=== PATIENT | female | born 1955 | race Two or more races ===

== ENCOUNTER → 2022-11-06 | Outpatient (CLI) | payer MEDICARE ==
--- NOTE | 2022-11-07 11:45 | CT ---
EXAMINATION TYPE: CT chest wo con DATE OF EXAM: 11/06/2022 COMPARISON: HISTORY: COPD. High resolution. CT DLP: 419.10 mGycm, Automated exposure control for dose reduction was used. CONTRAST: None TECHNIQUE: Axial images were obtained at 1 mm thick sections at 10 mm intervals. This will limit po rtions of the examination which may not be visualized within the [id number]. Images were obtained in the prone and supine views. FINDINGS: Portion of the thyroid visualized is normal. There is some mild emphysematous changes in the right apex and peripheral right upper lobe. Some mild peribronchial thickening appears to be present. No bronchiectasis is evident. No suspicious masses evident. There is a pleural-based density within the posterior medial right lung measuring 1.0 cm. Series 4 im age 166. This is persistent on prone and supine views. Some minimal scarring or atelectasis may be in the anterior right lung. Series 4 image 178. Small ple ural-based nodules are in the anterior right lung. Series 4 image 216. These findings are not identif ied on the prone view which may be out of the lunwa-sy-nzkz or related atelectasis. No enlarged mediastinal or hilar adenopathy is evident. The ascending aorta diameter at the level o f the main pulmonary artery is 3.6 cm. The main pulmonary artery diameter at the bifurcation is 2.4 cm. Mild coronary artery calcification is present Limited CT sections are obtained through the upper abdomen. Abdomen is essentially unremarkable. IMPRESSIONS: 1. Mild chronic appearing bronchitis. 2. Pleural-based densities. Standard CT chest may be useful for documentation and monitoring.
== END | disposition home or self-care (01) ==
LOC: RADCTMAIN 16:10
PROVIDERS: ATTEND Internal Medicine Critical Care Medicine
DX: J98.4 Other disorders of lung (principal); R06.09 Other forms of dyspnea
CPT/HCPCS: 71250

== ENCOUNTER 2023-02-15 08:56 | Emergency (ER) | payer MEDICARE ==
[2023-02-15 09:24] VITALS: TEMP 98.2
--- NOTE | 2023-02-15 10:00 | XR ---
EXAMINATION TYPE: XR chest 2V DATE OF EXAM: 02/15/2023 COMPARISON: None INDICATION: Mild short of breath, cough TECHNIQUE: Frontal and lateral views of the chest are obtained. FINDINGS: The heart size is normal. The pulmonary vasculature is normal. The lungs are clear. IMPRESSION: 1. No acute pulmonary process.
[2023-02-15 10:10] VITALS: BP 173/96
[2023-02-15 10:16] LABS: Basophils # (A) 0.1 k/uL (0-0.2); Basophils % (A) 1 %; Eosinophils # (A) 0.1 k/uL (0-0.7); Eosinophils % (A) 1 %; HCT 42.7 % (34.0-46.0); HGB 14.2 gm/dL (11.4-16.0); Lymphocytes # (A) 0.6 k/uL (1.0-4.8); Lymphocytes % (A) 7 %; MCH 30.8 pg (25.0-35.0); MCHC 33.1 g/dL (31.0-37.0); MCV 92.8 fL (80.0-100.0); Mean Platelet Volume 7.3; Monocytes # (A) 0.4 k/uL (0-1.0); Monocytes % (A) 4 %; Neutrophils # (A) 7.7 k/uL (1.3-7.7); Neutrophils % (A) 85 %; Platelet Count 223 k/uL (150-450); RDW 15.2 % (11.5-15.5); WBC 9.1 k/uL (3.8-10.6)
[2023-02-15 10:56] LABS: ALT 15 U/L (4-34); AST 25 U/L (14-36); African American GFR (CKD) >90 (>60 ml/min/1.73 sqM); Albumin 4.6 g/dL (3.5-5.0); Alkaline Phosphatase 96 U/L (38-126); Anion Gap 12 mmol/L; Blood Urea Nitrogen 9 mg/dL (7-17); Calcium 9.5 mg/dL (8.4-10.2); Carbon Dioxide 24 mmol/L (22-30); Chloride 100 mmol/L (98-107); Glucose 105 mg/dL (74-99); Non-African American GFR(CKD) >90 (>60 ml/min/1.73 sqM); Potassium 4.1 mmol/L (3.5-5.1); Sodium 136 mmol/L (137-145); Total Bilirubin 0.6 mg/dL (0.2-1.3); Total Protein 7.6 g/dL (6.3-8.2)
[2023-02-15] MEDS ORDERED: IPRATROPIUM-ALBUTEROL 3 ML NEB INHALATION STA (11:00)
--- NOTE | 2023-02-15 11:04 | ED ---
General Adult HPI - General Chief complaint: Upper Respiratory Infection Stated complaint: JUN Time Seen by Provider: 02/15/23 10:19 Source: patient, RN notes reviewed Mode of arrival: ambulatory Limitations: no limitations - History of Present Illness Initial comments: 67 year-old female past medical history significant for COPD, hypertension, rheumatoid arthritis since to the emergency department with a chief complaint of cough. Patient reports this is day 2 of a cough with accompanying symptoms of generalized body aches, congestion, headache. She denies any known recent sick contacts. She is up-to-date on vaccines. She denies chest pain, palpitations, shortness of breath, dyspnea. Patient has not been taking any xrjh-dxf-dpteuzx remedies for his symptoms - Related Data Previous Rx's Medication Instructions Recorded predniSONE 50 mg PO DAILY #5 tab 02/15/23 Allergies Allergy/AdvReac Type Severity Reaction Status Date / Time hydroxychloroquine Allergy Nausea & Verified 02/15/23 09:08 [From Plaquenil] Vomiting & Diarrhea Review of Systems ROS Statement: Those systems with pertinent positive or pertinent negative responses have been documented in the HPI. ROS Other: All systems not noted in ROS Statement are negative. Past Medical History Past Medical History: COPD, Hyperlipidemia, Hypertension, Rheumatoid Arthritis (RA), Thyroid Disorder Additional Past Medical History / Comment(s): barrets esophagus History of Any Multi-Drug Resistant Organisms: None Reported Past Surgical History: Section Past Psychological History: No Psychological Hx Reported Smoking Status: Never smoker Past Alcohol Use History: None Reported Past Drug Use History: None Reported General Exam - General Exam Comments Initial Comments: General: Alert, in no acute distress Head: atraumatic normocephalic. Eyes PERRL, EOMI intact, mucous membranes moist Respiratory: Mild expiratory wheeze. Cardiovascular: Heart rate regular rate and rhythm Abdominal: Soft without guarding or rebound Extremities: Normal inspection with full range of motion and normal capillary refill Neuroogic: alert and oriented 3, CN II-XII intact, able to ambulate with steady gait Skin: warm dry and intact with normal color Limitations: no limitations Course Vital Signs 02/15/23 02/15/23 02/15/23 09:03 09:50 10:47 Temperature 98.2 F Pulse Rate 74 Respiratory 18 18 Rate Blood Pressure 202/111 173/96 O2 Sat by Pulse 94 L Oximetry 02/15/23 02/15/2323 12:08 12:17 13:04 Temperature Pulse Rate 74 74 73 Respiratory 20 Rate Blood Pressure O2 Sat by Pulse 94 L Oximetry - Reevaluation(s) Reevaluation #1: 02/15/23 13:02 she was reevaluated. Expiratory wheeze has improved status post DuoNeb. Patient agreeable with the plan for discharge home Medical Decision Making - Medical Decision Making Was pt. sent in by a medical professional or institution (, GABBI, MARINE GEOLOGIST, urgent care, hospital, or shelter...) When possible be specific @ -[No] Did you speak to anyone other than the patient for history (EMS, parent, family, police, friend...)? What history was obtained from this source @ -[No] Did you review nursing and triage notes (agree or disagree)? Why? @ -[I reviewed and agree with nursing and triage notes] Were old charts reviewed (outside hosp., previous admission, EMS record, old EKG, old radiological studies, urgent care reports/EKG's, shelter records)? Report findings @ -[No old charts were reviewed] Differential Diagnosis (chest pain, altered mental status, abdominal pain women, abdominal pain men, vaginal bleeding, weakness, fever, dyspnea, syncope, headach e, dizziness, GI bleed, back pain, seizure, CVA, palpatations, mental health, musculoskeletal)? @ -[not applicable] EKG interpreted by me (3pts min.). @ -[As above] X-rays interpreted by me (1pt min.). @ X-ray does not reveal any cardiomegaly or focal consolidation CT interpreted by me (1pt min.). @ -[None done] U/S interpreted by me (1pt. min.). @ -[None done] What testing was considered but not performed or refused? (CT, X-rays, U/S, labs)? Why? @ -[None] What meds were considered but not given or refused? Why? @ -[None] Did you discuss the management of the patient with other professionals (professionals i.e. GABBI Moscoso, MARINE GEOLOGIST, lab, RT, psych nurse, social service technician, credit control manager, teacher, media liaison officer, welfare case worker)? Give summary @ -[No] Was smoking cessation discussed for >3mins.? @ -[No] Was critical care preformed (if so, how long)? @ -[No] Were there social determinants of health that impacted care today? How? (Homelessness, low income, unemployed, alcoholism, drug addiction, transportation, low edu. Level, literacy, decrease access to med. care, longterm, rehab)? @ -[No] Was there de-escalation of care discussed even if they declined (Discuss DNR or withdrawal of care, Hospice)? DNR status @ -[No] What co-morbidities impacted this encounter? (DM, HTN, Smoking, COPD, CAD, Cancer, CVA, ARF, Chemo, Hep., AIDS, mental health diagnosis, sleep apnea, morbid obesity)? @ -[None] Was patient admitted / discharged? Hospital course, mention meds given and route, prescriptions, significant lab abnormalities, going to OR and other pertinent info. @ -Discharged. This is 67-year-old female who presents the emergency department with cough. Patient had a history and physical exam performed. Vital signs are stable upon evaluation. Patient afebrile. There is mild exp iratory wheeze heard in the upper lung barrera. Heart rate regular rate and rhythm. Patient had viral swabs. Patient is RSV positive. Laboratory studies unremarkable. Patient was provided DuoNeb with some improvement. Chest x-ray does not reveal any focal consolidation. I discussed results in detail the patient verbalized understanding all questions were addressed. She is agreeable with the plan for discharge home. Patient provided a prescription for prednisone. Return precautions discussed at length. Case discussed with Dr. rutledge [facility] who agrees with plan of care Undiagnosed new problem with uncertain prognosis? @ -[No] Drug Therapy requiring intensive monitoring for toxicity (Heparin, Nitro, Insulin, Cardizem)? @ -[No] Were any procedures done? @ -[No] Diagnosis/symptom? @ -Cough - RSV - Hx of COPD Acute, or Chronic, or Acute on Chronic? @ -Acute Uncomplicated (without systemic symptoms) or Complicated (systemic symptoms)? @ -Uncomplicated Side effects of treatment? @ -[No] Exacerbation, Progression, or Severe Exacerbation? @ -[No] Poses a threat to life or bodily function? How? (Chest pain, [place], [place], pneumonia, PE, COPD, DKA, ARF, appy, cholecystitis, CVA, Diverticulitis, Homicidal, Suicidal, threat to staff... and all critical care pts) @ -Low likelihood - Lab Data Result diagrams: 02/15/23 09:12 02/15/23 09:12 Lab Results 02/15/23 02/15/23 02/15/23 Range/Units 09:12 09:12 09:12 WBC 9.1 (3.8-10.6) k/uL RBC 4.60 (3.80-5.40) m/uL Hgb 14.2 (11.4-16.0) gm/dL Hct 42.7 (34.0-46.0) % MCV 92.8 (80.0-100.0) fL MCH 30.8 (25.0-35.0) pg MCHC 33.1 (31.0-37.0) g/dL RDW 15.2 (11.5-15.5) % Plt Count 223 (150-450) k/uL MPV 7.3 Neutrophils % 85 % Lymphocytes % 7 % Monocytes % 4 % Eosinophils % 1 % Basophils % 1 % Neutrophils # 7.7 (1.3-7.7) k/uL Lymphocytes # 0.6 L (1.0-4.8) k/uL Monocytes # 0.4 (0-1.0) k/uL Eosinophils # 0.1 (0-0.7) k/uL Basophils # 0.1 (0-0.2) k/uL Sodium 136 L (137-145) mmol/L Potassium 4.1 (3.5-5.1) mmol/L Chloride 100 (98-107) mmol/L Carbon Dioxide 24 (22-30) mmol/L Anion Gap 12 mmol/L BUN 9 (7-17) mg/dL Creatinine 0.51 L (0.52-1.04) mg/dL Est GFR (CKD-EPI)AfAm >90 (>60 ml/min/1.73 sqM) Est GFR (CKD-EPI)NonAf >90 (>60 ml/min/1.73 sqM) Glucose 105 H (74-99) mg/dL Calcium 9.5 (8.4-10.2) mg/dL Total Bilirubin 0.6 (0.2-1.3) mg/dL AST 25 (14-36) U/L ALT 15 (4-34) U/L Alkaline Phosphatase 96 (38-126) U/L Total Protein 7.6 (6.3-8.2) g/dL Albumin 4.6 (3.5-5.0) g/dL Influenza Type A (PCR) Not Detected (Not Detectd) Influenza Type B (PCR) Not Detected (Not Detectd) RSV (PCR) Detected A (Not Detectd) SARS-CoV-2 (PCR) Not Detected (Not Detectd) Disposition Clinical Impression: Cough, RSV (acute bronchiolitis due to respiratory syncytial virus), History of COPD Disposition: HOME SELF-CARE Condition: Stable Instructions (If sedation given, give patient instructions): Respiratory Syncytial Virus (ED), Upper Respiratory Infection (ED) Additional Instructions: Dougie symptoms closely. Please take steroids as prescribed PLeasee return to the nearest emergency department if symptoms worsen or high fever, shortness of breath or cough develop Prescriptions: predniSONE 50 mg PO DAILY #5 tab Is patient prescribed a controlled substance at d/c from ED?: No Referrals: Kathy Wolf NPC [REFERRING] - 1-2 days Time of Disposition: 12:57
[2023-02-15 13:12] VITALS: PULSE 73; RESP 20
== END 2023-02-15 13:08 | disposition home or self-care (01) ==
LOC: EC 08:56
DX: J44.9 Chronic obstructive pulmonary disease, unspecified (principal); B97.4 Respiratory syncytial virus as the cause of diseases classified elsewhere; I10 Essential (primary) hypertension; Z20.822 Contact with and (suspected) exposure to COVID-19; Z88.8 Allergy status to other drugs, medicaments and biological substances
CPT/HCPCS: 36415; 71046; 80053; 85025; 87636; 94640; 99285

== ENCOUNTER → 2023-05-25 | Outpatient (CLI) | payer MEDICARE ==
--- NOTE | 2023-05-27 14:16 | MM ---
Reason for Exam: Screening (asymptomatic). Patient History: Menarche at age 11. First Full-Term at age 35. Late child-bearing (after 30). Postmenopausal. Risk Values: Lana 5 year model risk: 2.4%. NCI Lifetime model risk: 7.6%. Prior Study Comparison: No prior studies available for comparison. Tissue Density: The breasts are heterogeneously dense, which may obscure small masses. Findings: Analyzed By CAD. There is no suspicious group of microcalcifications or new suspicious mass. Benign-appearing calcifications bilaterally. Overall Assessment: Benign, BI-RAD 2 Management: Screening Mammogram of both breasts in [address] [facility] will attempt to contact patient to return for supplemental views and ultrasound if indicated. Patient should continue monthly self-breast exams. A clinical breast exam by your physician is recommended on an annual basis. This exam should not preclude additional follow-up of suspicious palpable abnormalities. Note on Lana scores and lifetime risk: 1. A Lana score greater than 3% is considered moderate risk. If this is the case, consider specialist referral to assess eligibility for a risk reducing agent. 2. If overall lifetime risk for the development of breast cancer is 20% or higher, the patient may qualify for future screening with alternating mammogram and breast MRI. Electronically signed and approved by: Chuck Bean DO
== END | disposition home or self-care (01) ==
LOC: RADMAMWWP 13:29
PROVIDERS: ATTEND Family Medicine
DX: Z12.31 Encounter for screening mammogram for malignant neoplasm of breast (principal); Z78.0 Asymptomatic menopausal state
CPT/HCPCS: 77063; 77067

== ENCOUNTER 2023-06-21 07:52 | Observation (INO) | payer MEDICARE ==
--- NOTE | 2023-06-21 08:43 | XR ---
EXAMINATION TYPE: XR chest 2V DATE OF EXAM: 06/21/2023 COMPARISON: 02/15/2023 HISTORY: Shortness of breath TECHNIQUE: Frontal and lateral views of the chest are obtained. FINDINGS: Scattered senescent parenchymal changes noted. Hyperinflation compatible with COPD. No evidence for infiltrate. No evidence for atelectasis. Heart size is stable. Mediastinal structures are stable and grossly unremarkable. No evidence for hilar prominence. Degenerative changes dorsal spine. IMPRESSION: 1. No evidence for acute pulmonary disease.
[2023-06-21] MEDS: hydrALAZINE HCL 20 MG/ML 1 ML VIAL IVP STA (08:47)
[2023-06-21] MEDS: MECLIZINE 25 MG TAB PO STA (08:48)
[2023-06-21] MEDS: SODIUM CHLORIDE 0.9% 1,000 ML IV STA (08:48)
[2023-06-21 08:49] LABS: Basophils # (A) 0.1 k/uL (0-0.2); Basophils % (A) 0 %; Eosinophils # (A) 0.2 k/uL (0-0.7); Eosinophils % (A) 2 %; HGB 13.8 gm/dL (11.4-16.0); Lymphocytes # (A) 1.2 k/uL (1.0-4.8); Lymphocytes % (A) 8 %; MCH 31.6 pg (25.0-35.0); MCHC 33.8 g/dL (31.0-37.0); MCV 93.6 fL (80.0-100.0); Mean Platelet Volume 7.6; Monocytes # (A) 0.7 k/uL (0-1.0); Monocytes % (A) 5 %; Neutrophils # (A) 12.1 k/uL (1.3-7.7); Neutrophils % (A) 84 %; Platelet Count 271 k/uL (150-450); RBC 4.37 m/uL (3.80-5.40); RDW 15.5 % (11.5-15.5); WBC 14.3 k/uL (3.8-10.6)
[2023-06-21] MEDS: METOCLOPRAMIDE 5 MG/ML 2 ML VIAL IVP STA (08:51)
[2023-06-21 08:56] LABS: INR 0.9 (<1.2); Partial Thromboplastin Time 24.8 sec (22.0-30.0); Prothrombin Time 10.5 sec (10.0-12.5)
--- NOTE | 2023-06-21 08:58 | ED ---
General Adult HPI - General Chief complaint: Chest Pain Stated complaint: dizziness/nausea Time Seen by Provider: 06/21/23 08:00 Source: patient, family, RN notes reviewed, old records reviewed Mode of arrival: ambulatory Limitations: no limitations - History of Present Illness Initial comments: This is a 67-year-old female who presents to the emergency department with a past medical history significant for high blood pressure and vertigo. Patient states about a week ago her vertigo was ongoing but over the last 2 days things got worse where it was not just quick movements if she was dizzy all the time. Patient states it was hard to walk without holding onto something and she became nauseous and states she has a 3 out of 10 headache at this time. Patient has not vomited patient denies chest pain or palpitations but she does state her chest feels tight but could be secondary to being anxious about the vertigo. Patient denies any abdominal pain. Patient denies any back pain. Patient is any dysuria hematuria urinary frequency. Patient denies any recent fever chills or cough. - Related Data Previous Rx's Medication Instructions Recorded predniSONE 50 mg PO DAILY #5 tab 02/15/23 Allergies Allergy/AdvReac Type Severity Reaction Status Date / Time hydroxychloroquine Allergy Nausea & Verified 06/21/23 07:59 [From Plaquenil] Vomiting & Diarrhea Penicillins Allergy Rash/Hives Verified 06/21/23 07:59 Review of Systems ROS Statement: Those systems with pertinent positive or pertinent negative responses have been documented in the HPI. ROS Other: All systems not noted in ROS Statement are negative. Past Medical History Past Medical History: COPD, Hyperlipidemia, Hypertension, Rheumatoid Arthritis (RA), Thyroid Disorder Additional Past Medical History / Comment(s): barrets esophagus, mctd connective tissue disorder. History of Any Multi-Drug Resistant Organisms: None Reported Past Surgical History: Section Past Psychological History: No Psychological Hx Reported Smoking Status: Never smoker Past Alcohol Use History: None Reported Past Drug Use History: None Reported General Exam - General Exam Comments Initial Comments: GENERAL: Patient is well-developed and well-nourished. Patient is nontoxic and well- hydrated and is in mild distress. ENT: Neck is soft and supple. No significant lymphadenopathy is noted. Oropharynx is clear. Moist mucous membranes. Neck has full range of motion without eliciting any pain. EYES: The sclera were anicteric and conjunctiva were pink and moist. Extraocular movements were intact and pupils were equal round and reactive to light. Eyelids were unremarkable. No nystagmus was noted however when the patient track my finger she was very dizzy PULMONARY: Unlabored respirations. Good breath sounds bilaterally. No audible rales rhonchi or wheezing was noted. CARDIOVASCULAR: There is a regular rate and rhythm without any murmurs gallops or rubs. ABDOMEN: Soft and nontender with normal bowel sounds. SKIN: Skin is clear with no lesions or rashes and otherwise unremarkable. NEUROLOGIC: Patient is alert and oriented x3. Cranial nerves II through XII are grossly intact. Motor and sensory are also intact. Normal speech, volume and content. Symmetrical smile. Finger-nose testing was normal bilaterally MUSCULOSKELETAL: Normal extremities with adequate strength and full range of motion. No lower extremity swelling or edema. No calf tenderness. LYMPHATICS: No significant lymphadenopathy is noted PSYCHIATRIC: Normal psychiatric evaluation. Limitations: no limitations Course Vital Signs 06/21/23 06/21/23 06/21/23 07:54 08:16 08:18 Temperature 98 F Pulse Rate 66 64 Pulse Rate [ 66 Mechanical Cad Drafter ] Respiratory 18 18 Rate Blood Pressure 164/102 208/99 O2 Sat by Pulse 98 95 Oximetry 06/21/23 06/21/23 08:45 09:12 Temperature Pulse Rate 64 61 Pulse Rate [ Mechanical Cad Drafter ] Respiratory 18 16 Rate Blood Pressure 193/106 174/89 O2 Sat by Pulse 97 98 Oximetry Medical Decision Making - Medical Decision Making EKG is interpreted by myself. EKG shows a sinus bradycardia 51 bpm parables 155 QRS is 81 QT interval is 421 QTc is 399. Patient's EKG shows no ST segment ovation or depression Was pt. sent in by a medical professional or institution (, PA, MEDICARE NURSE, urgent care, hospital, or halfway...) When possible be specific @ -No Did you speak to anyone other than the patient for history (EMS, parent, family, police, friend...)? What history was obtained from this source @ -No Did you review nursing and triage notes (agree or disagree)? Why? @ -I reviewed and agree with nursing and triage notes Were old charts reviewed (outside hosp., previous admission, EMS record, old EKG, old radiological studies, urgent care reports/EKG's, halfway records)? Report findings @ -I reviewed prior lab work on this patient and compared to today's lab work and saw no outstanding abnormalities. Also reviewed prior EKGs and prior radiological studies Differential Diagnosis (chest pain, altered mental status, abdominal pain women, abdominal pain men, vaginal bleeding, weakness, fever, dyspnea, syncope, headache, dizziness, GI bleed, back pain, seizure, CVA, palpatations, mental health, musculoskeletal)? @ -Differential Dizziness: Benign paroxysmal positional Vertigo, Menieres disease, otitis media, acoustic neuroma, vertebrobasilar insufficiency, cerebellar stroke, encephalitis, hy povolemic, arrhythmia, coronary artery syndrome, anemia, this is not meant to be an all-inclusive list EKG interpreted by me (3pts min.). @ -As above X-rays interpreted by me (1pt min.). @ -Chest x-ray showed no acute abnormality. CT interpreted by me (1pt min.). @ -None done U/S interpreted by me (1pt. min.). @ -None done What testing was considered but not performed or refused? (CT, X-rays, U/S, labs)? Why? @ -None What meds were considered but not given or refused? Why? @ -None Did you discuss the management of the patient with other professionals (professionals i.e. , PA, MEDICARE NURSE, lab, RT, psych nurse, social welfare administrator, guard dance hall, teacher, security police officer, case management assistant)? Give summary @ -I spoke with Dr. Dickinson he agreed to admit the patient Was smoking cessation discussed for >3mins.? @ -No Was critical care preformed (if so, how long)? @ -No Were there social determinants of health that impacted care today? How? (Homelessness, low income, unemployed, alcoholism, drug addiction, transportatio n, low edu. Level, literacy, decrease access to med. care, fdc, rehab)? @ -No Was there de-escalation of care discussed even if they declined (Discuss DNR or withdrawal of care, Hospice)? DNR status @ -No What co-morbidities impacted this encounter? (DM, HTN, Smoking, COPD, CAD, Cancer, CVA, ARF, Chemo, Hep., AIDS, mental health diagnosis, sleep apnea, morbid obesity)? @ -None Was patient admitted / discharged? Hospital course, mention meds given and route, prescriptions, significant lab abnormalities, going to OR and other pertinent info. @ -Patient was given Ativan and Valium fluids and Zofran. Patient was feeling better from a nausea standpoint but still was too dizzy to leave I spoke with Dr. Dickinson he agreed to admit the patient admit the patient wrote admitting orders. Patient also had chest pain and I will repeat her troponins. Undiagnosed new problem with uncertain prognosis? @ -No Drug Therapy requiring intensive monitoring for toxicity (Heparin, Nitro, Insulin, Cardizem)? @ -No Were any procedures done? @ -No Diagnosis/symptom? @ -Vertigo Acute, or Chronic, or Acute on Chronic? @ -Acute Uncomplicated (without systemic symptoms) or Complicated (systemic symptoms)? @ -Complicated Side effects of treatment? @ -No Exacerbation, Progression, or Severe Exacerbation? @ -No Poses a threat to life or bodily function? How? (Chest pain, [place], [place], pneumonia, PE, COPD, DKA, ARF, appy, cholecystitis, CVA, Diverticulitis, Homicidal, Suicidal, threat to staff... and all critical care pts) @ -No Diagnosis/symptom? @ -Chest pain Acute, or Chronic, or Acute on Chronic? @ -Acute Uncomplicated (without systemic symptoms) or Complicated (systemic symptoms)? @ -Complicated Side effects of treatment? @ -None Exacerbation, Progression, or Severe Exacerbation] @ -No Poses a threat to life or bodily function? @ -Yes this could lead to an DE and endorgan dysfunction - Lab Data Result diagrams: 06/21/23 08:29 06/21/23 08:29 Lab Results 06/21/23 06/21/23 06/21/23 Range/Units 08:29 08:29 08:29 WBC 14.3 H (3.8-10.6) k/uL RBC 4.37 (3.80-5.40) m/uL Hgb 13.8 (11.4-16.0) gm/dL Hct 41.0 (34.0-46.0) % MCV 93.6 (80.0-100.0) fL MCH 31.6 (25.0-35.0) pg MCHC 33.8 (31.0-37.0) g/dL RDW 15.5 (11.5-15.5) % Plt Count 271 (150-450) k/uL MPV 7.6 Neutrophils % 84 % Lymphocytes % 8 % Monocytes % 5 % Eosinophils % 2 % Basophils % 0 % Neutrophils # 12.1 H (1.3-7.7) k/uL Lymphocytes # 1.2 (1.0-4.8) k/uL Monocytes # 0.7 (0-1.0) k/uL Eosinophils # 0.2 (0-0.7) k/uL Basophils # 0.1 (0-0.2) k/uL PT 10.5 (10.0-12.5) sec INR 0.9 (<1.2) APTT 24.8 (22.0-30.0) sec Sodium 135 L (137-145) mmol/L Potassium 4.5 (3.5-5.1) mmol/L Chloride 106 (98-107) mmol/L Carbon Dioxide 19 L (22-30) mmol/L Anion Gap 10 mmol/L BUN 9 (7-17) mg/dL Creatinine 0.43 L (0.52-1.04) mg/dL Est GFR (CKD-EPI)AfAm >90 (>60 ml/min/1.73 sqM) Est GFR (CKD-EPI)NonAf >90 (>60 ml/min/1.73 sqM) Glucose 103 H (74-99) mg/dL Calcium 9.4 (8.4-10.2) mg/dL Magnesium 1.7 (1.6-2.3) mg/dL Total Bilirubin 1.1 (0.2-1.3) mg/dL AST 35 (14-36) U/L ALT 13 (4-34) U/L Alkaline Phosphatase 75 (38-126) U/L Troponin I (0.000-0.034) ng/mL Total Protein 7.3 (6.3-8.2) g/dL Albumin 4.4 (3.5-5.0) g/dL 06/21/23 Range/Units 08:29 WBC (3.8-10.6) k/uL RBC (3.80-5.40) m/uL Hgb (11.4-16.0) gm/dL Hct (34.0-46.0) % MCV (80.0-100.0) fL MCH (25.0-35.0) pg MCHC (31.0-37.0) g/dL RDW (11.5-15.5) % Plt Count (150-450) k/uL MPV Neutrophils % % Lymphocytes % % Monocytes % % Eosinophils % % Basophils % % Neutrophils # (1.3-7.7) k/uL Lymphocytes # (1.0-4.8) k/uL Monocytes # (0-1.0) k/uL Eosinophils # (0-0.7) k/uL Basophils # (0-0.2) k/uL PT (10.0-12.5) sec INR (<1.2) APTT (22.0-30.0) sec Sodium (137-145) mmol/L Potassium (3.5-5.1) mmol/L Chloride (98-107) mmol/L Carbon Dioxide (22-30) mmol/L Anion Gap mmol/L BUN (7-17) mg/dL Creatinine (0.52-1.04) mg/dL Est GFR (CKD-EPI)AfAm (>60 ml/min/1.73 sqM) Est GFR (CKD-EPI)NonAf (>60 ml/min/1.73 sqM) Glucose (74-99) mg/dL Calcium (8.4-10.2) mg/dL Magnesium (1.6-2.3) mg/dL Total Bilirubin (0.2-1.3) mg/dL AST (14-36) U/L ALT (4-34) U/L Alkaline Phosphatase (38-126) U/L Troponin I <0.012 (0.000-0.034) ng/mL Total Protein (6.3-8.2) g/dL Albumin (3.5-5.0) g/dL Disposition Clinical Impression: Chest pain, Constant vertigo, Hypertensive urgency Disposition: ADMITTED IP TO THIS HOSP Referrals: Héctor Bingham DO [Primary Care Provider] - 1-2 days Time of Disposition: 10:17
[2023-06-21 08:59] LABS: ALT 13 U/L (4-34); AST 35 U/L (14-36); African American GFR (CKD) >90 (>60 ml/min/1.73 sqM); Albumin 4.4 g/dL (3.5-5.0); Alkaline Phosphatase 75 U/L (38-126); Anion Gap 10 mmol/L; Blood Urea Nitrogen 9 mg/dL (7-17); Calcium 9.4 mg/dL (8.4-10.2); Carbon Dioxide 19 mmol/L (22-30); Chloride 106 mmol/L (98-107); Glucose 103 mg/dL (74-99); Magnesium 1.7 mg/dL (1.6-2.3); Non-African American GFR(CKD) >90 (>60 ml/min/1.73 sqM); Sodium 135 mmol/L (137-145); Total Bilirubin 1.1 mg/dL (0.2-1.3); Total Protein 7.3 g/dL (6.3-8.2)
[2023-06-21 09:08] LABS: Potassium 4.5 mmol/L (3.5-5.1)
[2023-06-21] MEDS ORDERED: IPRATROPIUM-ALBUTEROL 3 ML NEB INHALATION PRN (09:30)
[2023-06-21] MEDS ORDERED: NALOXONE 0.4 MG/ML 1 ML VIAL IVP PRN (09:30)
[2023-06-21] MEDS ORDERED: NITROGLYCERIN SL TABS 0.4 MG TAB SUBLINGUAL PRN (10:17)
[2023-06-21] MEDS: ASPIRIN 81 MG PO STA (10:33)
[2023-06-21] MEDS ORDERED: IPRATROPIUM-ALBUTEROL 3 ML NEB INHALATION SCH (12:00)
[2023-06-21] MEDS ORDERED: methylPREDNISolone SOD SUCCI 125 MG/2 ML VIAL IV SCH (12:00)
[2023-06-21] MEDS: NITROGLYCERIN OINT 1 INCH/GM PACKET TOPICAL SCH (13:07)
[2023-06-21] MEDS ORDERED: MECLIZINE 25 MG TAB PO PRN (13:23)
[2023-06-21] MEDS ORDERED: ALBUTEROL NEBULIZED 2.5 MG/3 ML INHALATION PRN (13:28)
[2023-06-21] MEDS ORDERED: NON FORMULARY DRUG (Doxylamine Succinate [Unisom] 25 MG Tablet) PO PRN (13:28)
--- NOTE | 2023-06-21 13:29 | P.HPIM ---
History of Present Illness H&P Date: 06/21/23 History of present illness; patient is 67-year-old lady with past medical history significant for hypertension, hypothyroidism, vertigo, COPD, hyperlipidemia who presented to the ER because of worsening dizziness and chest pain. Patient has history of vertigo and normally follows up with the ENTinez that the vertigo was worsening over the last few days to the extent that it was present throughout the day, brought on by sharp movements of the head. Patient was unsteady on her gait. Patient also may have nausea and vomiting. Yesterday patient started noticing chest pressure on the right side, intermittent, nonradiating, no aggravating or relieving factor associated chest pain. There was no complaint of shortness of breath. No complaint of orthopnea and PND. No pain or swelling of feet. Because of this dizziness and chest pain, patient came to the ER Initial lab work done in the ER showed WBC 14.3, hemoglobin 13.8, platelet count 271, sodium 135, potassium 4.5, BUN 9, creatinine 0.43 glucose 103, troponin 0.012 EKG done in the ER showed heart rate of 51, no ST segment elevation or depression seen, no T-wave inversions seen. Chest x-ray done in the ER no evidence for acute pulmonary disease Patient admitted to internal medicine service REVIEW OF SYSTEMS: CONSTITUTIONAL: No fever, no malaise, no fatigue. HEENT: No recent visual problems or hearing problems. Denied any sore throat. CARDIOVASCULAR: As mentioned above PULMONARY: As mentioned above GASTROINTESTINAL: No diarrhea, no nausea, no vomiting, no abdominal pain. NEUROLOGICAL: No headaches, no weakness, no numbness. HEMATOLOGICAL: Denies any bleeding or petechiae. GENITOURINARY: Denies any burning micturition, frequency, or urgency. MUSCULOSKELETAL/RHEUMATOLOGICAL: Denies any joint pain, swelling, or any muscle pain. ENDOCRINE: Denies any polyuria or polydipsia. The rest of the 14-point review of systems is negative. PHYSICAL EXAMINATION: GENERAL: The patient is alert and oriented x3, not in any acute distress. Well developed, well nourished. HEENT: Pupils are round and equally reacting to light. EOMI. No scleral icterus. No conjunctival pallor. Normocephalic, atraumatic. No pharyngeal erythema. No thyromegaly. CARDIOVASCULAR: S1 and S2 present. No murmurs, rubs, or gallops. PULMONARY: Chest is clear to auscultation, no wheezing or crackles. ABDOMEN: Soft, nontender, nondistended, normoactive bowel sounds. No palpable organomegaly. MUSCULOSKELETAL: No joint swelling or deformity. EXTREMITIES: No cyanosis, clubbing, or pedal edema. NEUROLOGICAL: Gross neurological examination did not reveal any focal deficits. SKIN: No rashes. Assessment and plan Chest pain, rule out acute coronary syndrome Vertigo Dizziness Hypertension Hypothyroidism COPD Hyperlipidemia Monitor vital signs Monitor CBC Monitor CMP Continue telemetry monitoring Trend troponins. Ordered 2D echo Order CT head Start patient on Antivert Consult cardiology Resume home meds Labs and medication were reviewed.. Continue same treatment. Continue with symptomatic treatment. Resume home medication. Monitor labs and vitals. DVT and GI prophylaxis. Further recommendations as per clinical course of the patient Dictation was produced using [employer] dictation software. please excuse any grammatical, word or spelling errors. Past Medical History Past Medical History: COPD, Hyperlipidemia, Hypertension, Rheumatoid Arthritis (RA), Thyroid Disorder Additional Past Medical History / Comment(s): barrets esophagus, mctd connective tissue disorder. History of Any Multi-Drug Resistant Organisms: None Reported Past Surgical History: Section Past Psychological History: No Psychological Hx Reported Smoking Status: Never smoker Past Alcohol Use History: None Reported Past Drug Use History: None Reported Medications and Allergies Home Medications Medication Instructions Recorded Confirmed Type Acetaminophen Tab [Tylenol] 650 mg PO Q6H PRN 06/21/23 06/21/23 History Albuterol Sulfate [Albuterol 2 puff INHALATION RT-QID PRN 06/21/23 06/21/23 History Sulfate Hfa] Aspirin EC [Ecotrin Low Dose] 81 mg PO BID 06/21/23 06/21/23 History Doxylamine Succinate [Unisom] 25 mg PO HS PRN 06/21/23 06/21/23 History Ezetimibe [Zetia] 10 mg PO HS 06/21/23 06/21/23 History Fluticasone/Umeclidin/Vilanter 1 puff INHALATION RT-DAILY 06/21/23 06/21/23 History [Trelegy Ellipta 100-62.5-25] Folic Acid 1 mg PO DAILY 06/21/23 06/21/23 History Lansoprazole 30 mg PO DAILY 06/21/23 06/21/23 History Levothyroxine Sodium [Synthroid] 88 mcg PO DAILY 06/21/23 06/21/23 History Losartan Potassium 100 mg PO HS 06/21/23 06/21/23 History carvediloL [Coreg] 25 mg PO BID 06/21/23 06/21/23 History metHOTREXate sodium 15 mg PO MO 06/21/23 06/21/23 History predniSONE 5 mg PO DAILY 06/21/23 06/21/23 History Allergies Allergy/AdvReac Type Severity Reaction Status Date / Time dexlansoprazole Allergy Unknown Verified 06/21/23 11:26 [From Dexilant] duloxetine [From Cymbalta] Allergy Unknown Verified 06/21/23 11:26 etanercept [From Enbrel] Allergy Unknown Verified 06/21/23 11:26 hydroxychloroquine Allergy Nausea & Verified 06/21/23 11:26 [From Plaquenil] Vomiting & Diarrhea NSAIDS (Non-Steroidal Allergy Unknown Verified 06/21/23 11:26 Anti-Inflamma pantoprazole [From Protonix] Allergy Unknown Verified 06/21/23 11:26 Penicillins Allergy Rash/Hives Verified 06/21/23 11:26 rosuvastatin [From Crestor] Allergy Unknown Verified 06/21/23 11:26 salicylates Allergy Unknown Verified 06/21/23 11:26 ant Allergy Unknown Uncoded 06/21/23 11:26 Physical Exam Vitals: Vital Signs Temp Pulse Pulse Resp BP Pulse Ox 06/21/23 13:00 77 18 157/97 98 06/21/23 11:39 80 18 143/80 98 06/21/23 10:32 86 17 147/99 97 06/21/23 09:12 61 16 174/89 98 06/21/23 08:45 64 18 193/106 97 06/21/23 08:18 64 18 208/99 95 06/21/23 08:16 66 06/21/23 07:54 98 F 66 18 164/102 98 Intake and Output 06/20/23 06/21/23 06/21/23 22:59 06:59 14:59 Other: Weight 56.699 kg Results CBC & Chem 7: 06/21/23 08:29 06/21/23 08:29 Labs: Abnormal Lab Results - Last 24 Hours (Table) 06/21/23 06/21/23 Range/Units 08:29 08:29 WBC 14.3 H (3.8-10.6) k/uL Neutrophils # 12.1 H (1.3-7.7) k/uL Sodium 135 L (137-145) mmol/L Carbon Dioxide 19 L (22-30) mmol/L Creatinine 0.43 L (0.52-1.04) mg/dL Glucose 103 H (74-99) mg/dL
--- NOTE | 2023-06-21 14:54 | CT ---
EXAMINATION TYPE: CT brain wo con CT DLP: 1125.4 mGycm, Automated exposure control for dose reduction was used. DATE OF EXAM: 06/21/2023 2:25 PM COMPARISON: None. CLINICAL INDICATION:Female, 67 years old with history of Dizziness, Dizziness, vertigo TECHNIQUE: Brain: Axial CT images of the brain were obtained with coronal and sagittal reformats created and rev iewed. Contrast used: None. Oral contrast used: None. FINDINGS: Extra-axial spaces: No abnormal extra-axial fluid collections. Ventricular system: Ventricles appear dilated in proportion to the degree of cerebral atrophy. Cerebral parenchyma: No increased attenuation to suggest acute intraparenchymal hemorrhage. The gra y-white matter interface appears maintained. Mild atrophy, predominantly the frontal and parietal lo bes, with evidence of volume loss and enlargement of sulci most conspicuous on the sagittal and coron al images. Scattered hypoattenuating areas are seen within the cerebral white matter, nonspecific but most often seen with chronic microvascular ischemic changes; mild in degree. Tiny lacunar infarcts suggested in the basal ganglia. Cerebellum: No acute abnormality. Mass effect: No evidence of mass effect or midline shift. Intracranial vasculature: Atherosclerotic calcifications of the larger arteries near the skull base. Soft tissues: No acute or concerning abnormality. Visualized orbits: Orbital contents appear grossly intact. There has likely been previous lens surg niya. Calvarium/osseous structures: No evidence of calvarial fracture. Paranasal sinuses and mastoid air cells: Likely operative openings in the medial maxillary sinus wall s. Mild lobular mucosal thickening along the periphery of the maxillary sinuses. IMPRESSION: 1. No acute intracranial CT abnormality. 2. Mild atrophy and mild chronic microvascular ischemic white matter changes. Lacunar infarcts sugge sted in the bilateral basal ganglia, favored to be chronic. If there is persistent concern for an acu te process, MRI may be considered.
[2023-06-21] MEDS: carvediloL 12.5 MG TAB PO SCH (16:46)
[2023-06-21] MEDS: LOSARTAN 50 MG TAB PO SCH (20:02)
[2023-06-21] MEDS: EZETIMIBE 10 MG TAB PO SCH (20:02)
[2023-06-21] MEDS: MECLIZINE 25 MG TAB PO SCH (20:03)
[2023-06-21] MEDS: ACETAMINOPHEN TAB 325 MG TAB PO PRN (20:03)
[2023-06-21] MEDS ORDERED: NON FORMULARY DRUG (Aspirin Ec 81 MG Tablet) PO SCH (21:00)
[2023-06-22] MEDS: LEVOTHYROXINE 88 MCG TAB PO SCH (05:56)
[2023-06-22] MEDS: SYMBICORT 80-4.5 MCG INHALER INHALATION SCH (08:03)
[2023-06-22] MEDS: IPRATROPIUM 0.5 MG/2.5 ML NEBU INHALATION SCH (08:03)
[2023-06-22] MEDS ORDERED: AZITHROMYCIN 500 MG TAB PO SCH (09:00)
[2023-06-22] MEDS ORDERED: ASPIRIN 325 MG TAB PO SCH (09:00)
[2023-06-22] MEDS: FOLIC ACID 1 MG TAB PO SCH (09:19)
[2023-06-22] MEDS: metHOTREXate sodium 2.5 MG TAB PO SCH (09:19)
[2023-06-22] MEDS: NON FORMULARY DRUG (Lansoprazole [Lansoprazole] 30 MG Capsule.Dr) PO SCH (09:20)
[2023-06-22] MEDS: predniSONE 5 MG TAB PO SCH (09:20)
[2023-06-22] MEDS: VALSARTAN 160 MG TAB PO SCH (09:58)
[2023-06-22 10:26] LABS: ALT 12 U/L (4-34); AST 21 U/L (14-36); African American GFR (CKD) >90 (>60 ml/min/1.73 sqM); Alkaline Phosphatase 76 U/L (38-126); Anion Gap 9 mmol/L; Blood Urea Nitrogen 11 mg/dL (7-17); Calcium 9.4 mg/dL (8.4-10.2); Carbon Dioxide 22 mmol/L (22-30); Chloride 106 mmol/L (98-107); Glucose 107 mg/dL (74-99); Non-African American GFR(CKD) >90 (>60 ml/min/1.73 sqM); Potassium 3.6 mmol/L (3.5-5.1); Sodium 137 mmol/L (137-145); Total Bilirubin 0.8 mg/dL (0.2-1.3); Total Protein 6.5 g/dL (6.3-8.2)
[2023-06-22 11:10] LABS: Chol/HDL Ratio 3.94 Ratio; LDL Cholesterol,Calculated 117.6 mg/dL (0.0-131.0)
--- NOTE | 2023-06-22 11:48 | P.PN ---
Subjective Progress Note Date: 06/22/23 patient is 67-year-old lady with past medical history significant for hypertension, hypothyroidism, vertigo, COPD, hyperlipidemia who presented to the ER because of worsening dizziness and chest pain. Patient has history of vertigo and normally follows up with the ENT, states that the vertigo was worsen ing over the last few days to the extent that it was present throughout the day, brought on by sharp movements of the head. Patient was unsteady on her gait. Patient also may have nausea and vomiting. Yesterday patient started noticing chest pressure on the right side, intermittent, nonradiating, no aggravating or relieving factor associated chest pain. There was no complaint of shortness of breath. No complaint of orthopnea and PND. No pain or swelling of feet. Because of this dizziness and chest pain, patient came to the ER Initial lab work done in the ER showed WBC 14.3, hemoglobin 13.8, platelet count 271, sodium 135, potassium 4.5, BUN 9, creatinine 0.43 glucose 103, troponin 0.0 12 EKG done in the ER showed heart rate of 51, no ST segment elevation or depression seen, no T-wave inversions seen. Chest x-ray done in the ER no evidence for acute pulmonary disease Patient admitted to internal medicine service 06/21. Patient seen and examined. D-dimer was elevated, will order CT angio chest to rule out PE. No further episodes of chest pain. Still has dizziness but states it has improved compared to yesterday.Results of CT head noted, showing mild atrophy and mild chronic microvascular ischemic changes. Lacunar infarct suggested in the bilateral basal ganglia, favored to be chronic REVIEW OF SYSTEMS: CONSTITUTIONAL: No fever, no malaise,. CARDIOVASCULAR: No chest pain, no palpitations, no syncope. PULMONARY: No shortness of breath, no cough, GASTROINTESTINAL: No diarrhea, no nausea, no vomiting, no abdominal pain. NEUROLOGICAL: No headaches, no weakness, PHYSICAL EXAMINATION: GENERAL: The patient is alert and oriented x3, not in any acute distress. Well developed, well nourished. HEENT: Pupils are round and equally reacting to light. EOMI. No scleral icterus. No conjunctival pallor. Normocephalic, atraumatic. No pharyngeal erythema. No thyromegaly. CARDIOVASCULAR: S1 and S2 present. No murmurs, rubs, or gallops. PULMONARY: Chest is clear to auscultation, no wheezing or crackles. ABDOMEN: Soft, nontender, nondistended, normoactive bowel sounds. No palpable organomegaly. MUSCULOSKELETAL: No joint swelling or deformity. EXTREMITIES: No cyanosis, clubbing, or pedal edema. NEUROLOGICAL: Gross neurological examination did not reveal any focal deficits. SKIN: No rashes. Assessment and plan Chest pain, rule out acute coronary syndrome Vertigo Dizziness Hypertension Hypothyroidism COPD Hyperlipidemia Monitor vital signs Monitor CBC Monitor CMP Continue telemetry monitoring Trend troponins. Ordered 2D echo D-dimer was elevated, ordered CT angio chest Results of CT head noted, showing mild atrophy and mild chronic microvascular ischemic changes. Lacunar infarct suggested in the bilateral basal ganglia, favored to be chronic Continue Antivert Continue Synthroid for hypothyroidism Continue valsartan for hypertension Cardiology consulted Neurology consulted Labs and medication were reviewed.. Continue same treatment. Continue with symptomatic treatment. Resume home medication. Monitor labs and vitals. DVT and GI prophylaxis. Further recommendations as per clinical course of the patient Dictation was produced using [employer] dictation software. please excuse any grammatical, word or spelling errors. Objective - Vital Signs Vital signs: Vital Signs Temp 97.9 F 06/22/23 00:00 Pulse 67 06/22/23 09:12 Resp 15 06/22/23 09:12 BP 175/83 06/22/23 09:12 Pulse Ox 97 06/22/23 09:12 FiO2 Intake & Output 06/21/23 06/22/23 06/22/23 18:59 06:59 18:59 Intake Total 0 10 Balance 0 10 Weight 56.699 kg Intake: IV 10 Invasive Line 1 10 Oral 0 Other: Voiding Method Toilet Toilet # Voids 1 - Labs CBC & Chem 7: 06/21/23 08:29 06/22/23 07:55 Labs: Abnormal Lab Results - Last 24 Hours (Table) 06/21/23 Range/Units 15:06 D-Dimer 0.67 H (<0.60) mg/L FEU
--- NOTE | 2023-06-22 12:05 | CA ---
Transthoracic Echo Report Name: Kathleen Richmond Age: 67 Gender: F : 1955 Exam Date: 06/22/2023 08:46 Exam Location: [facility] Ht (in): 62 Wt (lb): 125 Ordering Physician: Tom Dickinson MD Attending/Referring Phys: Rectifier Operator Zoë Sullivan RCS Procedure CPT: Indications: Chest Pain Cardiac Hx: Technical Quality: Good Contrast 1: Total Dose (mL): Contrast 2: Total Dose (mL): MEASUREMENTS (Male / Female) Normal Values 2D ECHO LV Diastolic Diameter PLAX 4.0 cm 4.2 - 5.9 / 3.9 - 5.3 cm LV Systolic Diameter PLAX 2.8 cm IVS Diastolic Thickness 0.8 cm 0.6 - 1.0 / 0.6 - 0.9 cm LVPW Diastolic Thickness 0.9 cm 0.6 - 1.0 / 0.6 - 0.9 cm LV Relative Wall Thickness 0.4 RV Internal Dim ED PLAX 2.7 cm LVOT Diameter 1.9 cm Aortic Root Diameter 2.9 cm LV Diastolic Volume MOD BP 61.0 cm??? 67 - 155 / 56 - 104 cm??? LV Systolic Volume MOD BP 21.7 cm??? 22 - 58 / 19 - 49 cm??? LV Ejection Fraction MOD BP 64.4 % >= 55 % LV Cardiac Index MOD BP 1838.9 cm???/min???m??? LV Diastolic Volume MOD 4C 68.1 cm??? LV Systolic Volume MOD 4C 26.0 cm??? LV Ejection Fraction MOD 4C 61.8 % LV Cardiac Index MOD 4C 1969.5 cm???/min???m??? LV Diastolic Length 4C 7.5 cm LV Systolic Length 4C 6.3 cm LV Diastolic Volume MOD 2C 53.7 cm??? LV Systolic Volume MOD 2C 17.8 cm??? LV Ejection Fraction MOD 2C 66.9 % LV Cardiac Index MOD 2C 1682.2 cm???/min???m??? LV Diastolic Length 2C 7.6 cm LV Systolic Length 2C 6.2 cm Ascending Aorta Diameter 3.3 cm DOPPLER AV Peak Velocity 139.2 cm/s AV Peak Gradient 7.7 mmHg AV Mean Velocity 93.3 cm/s AV Mean Gradient 3.9 mmHg AV Velocity Time Integral 27.5 cm LVOT Peak Velocity 99.6 cm/s LVOT Peak Gradient 4.0 mmHg LVOT Velocity Time Integral 18.0 cm LVOT Stroke Volume 52.1 cm??? LVOT Stroke Volume Index 33.3 ml/m??? LVOT Cardiac Index 2437.4 cm???/min???m??? AV Area Cont Eq vti 1.9 cm??? AV Area Cont Eq pk 2.1 cm??? Mitral E Point Velocity 61.2 cm/s Mitral A Point Velocity 83.9 cm/s Mitral E to A Ratio 0.7 MV Deceleration Time 251.7 ms MV E' Velocity 4.4 cm/s Mitral E to MV E' Ratio 14.1 PV Peak Velocity 80.8 cm/s PV Peak Gradient 2.6 mmHg FINDINGS Left Ventricle Left ventricular ejection fraction is estimated at 60-65 %. Left ventricular cavity size normal. Left ventricular wall thickness normal. No obvious regional wall motion abnormalities. Right Ventricle Normal right ventricular size and function. Unable to estimate right ventricular systolic function. Right Atrium Normal right atrial size. Left Atrium Normal left atrial size. Mitral Valve Structurally normal mitral valve. No mitral stenosis, regurgitation or prolapse. Aortic Valve Aortic valve not well visualized. No aortic valve stenosis or regurgitation. Tricuspid Valve Structurally normal tricuspid valve. No tricuspid stenosis. Trace tricuspid regurgitation. Pulmonic Valve Structurally normal pulmonic valve. No pulmonic stenosis. No pulmonic regurgitation. Pericardium No pericardial effusion. Aorta Normal size aortic root and proximal ascending aorta. CONCLUSIONS Normal LV size and systolic function. No significant abnormality in the Doppler exam. No pericardial effusion Previewed by: Dr. Giselle Rice MD (Electronically Signed) Final Date: 22 June 2023 12:04
--- NOTE | 2023-06-22 12:08 | P.CRDCN ---
History of Present Illness Consult date: 06/22/23 Consult reason: chest pain History of present illness: History of present illness: This is a 67-year-old female with past medical history of hypertension, vertigo, hyperlipidemia, hypothyroidism, rheumatoid arthritis, Cobian's esophagus, connective tissue disorder. Patient states that she came in because of vertigo. She has had it in the past but never this bad. She states she has been taking all of her medications as directed and has been on steroids for a long time. Her initial blood pressure was 164/102-208/99. Patient states that her blood pressure normally runs normal at home. She feels like the vertigo started first and then she checked her blood pressure and it was high. Discussed the option that it was relieved but her blood pressure was high and the symptom that it caused was vertigo. EKG sinus rhythm with no acute ST changes. Chest x-ray: No 30: 18 there today acute process CAT scan of the brain: No acute process, chronic changes WBC 14.3, hemoglobin 13.8. INR 0.9. D-dimer 0.67. Electrolytes and renal function are normal. Troponins negative x 3. Triglycerides 151, cholesterol 198, LDL 117, HDL 50. Home cardiac medications: Aspirin 81 mg daily, Coreg 25 mg twice daily, Zetia 10 mg at bedtime, levothyroxine 88 mg daily, losartan 100 mg at bedtime, patient is also on methotrexate and prednisone. Review Of Systems: At the time of my exam: CONSTITUTIONAL: Denies fever or chills. HEENT: Denies blurred vision, vision changes, or eye pain. Denies hemoptysis CARDIOVASCULAR: Denies chest pain. Denies orthopnea. Denies PND. Denies palpitations RESPIRATORY: Denies shortness of breath. GASTROINTESTINAL: Denies abdominal pain. Denies nausea or vomiting. HEMATOLOGIC: Denies bleeding disorders. GENITOURINARY: Denies any blood in urine. SKIN: Denies pruitis. Denies rash. Physical examination: Gen: This is a 67-year-old female in no acute distress VS: reviewed blood pressure 175/83, heart rate 67, pulse ox 97% on room air. HEENT: Head is atraumatic, normocephalic. Pupils equal, round. Sclerae is an icteric. NECK: Supple. No JVD. No subclavian bruit. LUNGS: Clear to auscultation. No wheezes or rhonchi. No intercostal retractions. HEART: Regular rate and rhythm. No murmur. ABDOMEN: Soft No tenderness. No abdominal bruit. EXTREMITIES: No pedal edema. No calf tenderness. NEUROLOGICAL: Patient is awake, alert and oriented x3. Assessment: Hypertensive urgency Vertigo Hyperlipidemia Hypothyroidism Rheumatoid arthritis Plan: Resume patient's home cardiac medications Discontinue losartan and start patient on valsartan 320 mg daily Monitor blood pressure closely Obtain 2-D echocardiogram and Doppler study to assess cardiac structure and function Further recommendations to follow based upon clinical course Thank you kindly for this consultation. Nurse practitioner note has been reviewed, I agree with documented findings and plan of care. Patient was seen and examined. Past Medical History Past Medical History: COPD, Hyperlipidemia, Hypertension, Rheumatoid Arthritis (RA), Thyroid Disorder Additional Past Medical History / Comment(s): barrets esophagus, mctd connective tissue disorder. History of Any Multi-Drug Resistant Organisms: None Reported Past Surgical History: Appendectomy, Section Additional Past Surgical History / Comment(s): "surgery on ruptured cyst on ovary" Smoking Status: Former smoker Medications and Allergies Home Medications Medication Instructions Recorded Confirmed Type Acetaminophen Tab [Tylenol] 650 mg PO Q6H PRN 06/21/23 06/21/23 History Albuterol Sulfate [Albuterol 2 puff INHALATION RT-QID PRN 06/21/23 06/21/23 History Sulfate Hfa] Aspirin EC [Ecotrin Low Dose] 81 mg PO BID 06/21/23 06/21/23 History Doxylamine Succinate [Unisom] 25 mg PO HS PRN 06/21/23 06/21/23 History Ezetimibe [Zetia] 10 mg PO HS 06/21/23 06/21/23 History Fluticasone/Umeclidin/Vilanter 1 puff INHALATION RT-DAILY 06/21/23 06/21/23 History [Trelegy Ellipta 100-62.5-25] Folic Acid 1 mg PO DAILY 06/21/23 06/21/23 History Lansoprazole 30 mg PO DAILY 06/21/23 06/21/23 History Levothyroxine Sodium [Synthroid] 88 mcg PO DAILY 06/21/23 06/21/23 History Losartan Potassium 100 mg PO HS 06/21/23 06/21/23 History carvediloL [Coreg] 25 mg PO BID 06/21/23 06/21/23 History metHOTREXate sodium 15 mg PO MO 06/21/23 06/21/23 History predniSONE 5 mg PO DAILY 06/21/23 06/21/23 History Allergies Allergy/AdvReac Type Severity Reaction Status Date / Time dexlansoprazole Allergy Unknown Verified 06/21/23 11:26 [From Dexilant] duloxetine [From Cymbalta] Allergy Unknown Verified 06/21/23 11:26 etanercept [From Enbrel] Allergy Unknown Verified 06/21/23 11:26 hydroxychloroquine Allergy Nausea & Verified 06/21/23 11:26 [From Plaquenil] Vomiting & Diarrhea NSAIDS (Non-Steroidal Allergy Unknown Verified 06/21/23 11:26 Anti-Inflamma pantoprazole [From Protonix] Allergy Unknown Verified 06/21/23 11:26 Penicillins Allergy Rash/Hives Verified 06/21/23 11:26 rosuvastatin [From Crestor] Allergy Unknown Verified 06/21/23 11:26 salicylates Allergy Unknown Verified 06/21/23 11:26 ant Allergy Unknown Uncoded 06/21/23 11:26 Physical Exam Vitals: Vital Signs Temp Pulse Pulse Resp BP BP Pulse Ox 06/22/23 08:20 68 06/22/23 08:04 68 06/22/23 04:00 69 16 127/85 96 06/22/23 00:00 97.9 F 69 16 139/79 96 06/21/23 20:00 98.1 F 74 16 138/86 97 06/21/23 16:37 98.1 F 64 16 160/79 96 06/21/23 14:40 98.1 F 76 18 154/93 97 06/21/23 14:30 74 16 144/94 97 06/21/23 13:00 77 18 157/97 98 06/21/23 11:39 80 18 143/80 98 06/21/23 10:32 86 17 147/99 97 06/21/23 09:12 61 16 174/89 98 Intake and Output 06/21/23 06/22/23 06/22/23 22:59 06:59 14:59 Intake Total 10 Balance 10 Intake: IV 10 Invasive Line 1 10 Oral 0 Other: Voiding Method Toilet Toilet # Voids 1 Results 06/21/23 08:29 06/22/23 07:55 Cardiac Enzymes 06/21/23 06/21/23 06/21/23 Range/Units 08:29 08:29 10:36 AST 35 (14-36) U/L Troponin I <0.012 <0.012 (0.000-0.034) ng/mL 06/21/23 Range/Units 15:06 AST (14-36) U/L Troponin I <0.012 (0.000-0.034) ng/mL Coagulation 06/21/23 Range/Units 08:29 PT 10.5 (10.0-12.5) sec APTT 24.8 (22.0-30.0) sec Comprehensive Metabolic Panel 06/21/23 Range/Units 08:29 Sodium 135 L (137-145) mmol/L Potassium 4.5 (3.5-5.1) mmol/L Chloride 106 (98-107) mmol/L Carbon Dioxide 19 L (22-30) mmol/L BUN 9 (7-17) mg/dL Creatinine 0.43 L (0.52-1.04) mg/dL Glucose 103 H (74-99) mg/dL Calcium 9.4 (8.4-10.2) mg/dL AST 35 (14-36) U/L ALT 13 (4-34) U/L Alkaline Phosphatase 75 (38-126) U/L Total Protein 7.3 (6.3-8.2) g/dL Albumin 4.4 (3.5-5.0) g/dL Current Medications Generic Name Dose Route Start Last Admin Trade Name Freq PRN Reason Stop Dose Admin Acetaminophen 650 mg 06/21/23 13:28 06/21/23 20:03 Acetaminophen Tab 325 Mg Tab PO 650 mg Q6H PRN Administration Pain Albuterol Sulfate 2.5 mg 06/21/23 13:28 Albuterol Nebulized 2.5 Mg/3 Ml INHALATION RT-QID PRN Shortness Of Breath Aspirin 325 mg 06/22/23 09:00 Aspirin 325 Mg Tab PO DAILY ROSALIE Budesonide/Formoterol Fumarate 2 puff 06/22/23 08:00 06/22/23 08:03 Symbicort 80-4.5 Mcg Inhaler INHALATION 2 puff RT-BID ROSALIE Administration Carvedilol 25 mg 06/21/23 17:30 06/22/23 05:56 Carvedilol 12.5 Mg Tab PO 25 mg AC-BID ROSALIE Administration Ezetimibe 10 mg 06/21/23 21:00 06/21/23 20:02 Ezetimibe 10 Mg Tab PO 10 mg HS ROSALIE Administration Folic Acid 1 mg 06/22/23 09:00 Folic Acid 1 Mg Tab PO DAILY ROSALIE Ipratropium [place] 0.5 mg 06/22/23 08:00 06/22/23 08:03 Ipratropium 0.5 Mg/2.5 Ml Nebu INHALATION 0.5 mg RT-QID ROSALIE Administration Levothyroxine Sodium 88 mcg 06/22/23 06:30 06/22/23 05:56 Levothyroxine 88 Mcg Tab PO 88 mcg 0630 ROSALIE Administration Losartan Potassium 100 mg 06/21/23 21:00 06/21/23 20:02 Losartan 50 Mg Tab PO 100 mg HS ROSALIE Administration Meclizine HCl 25 mg 06/21/23 22:00 06/21/23 20:03 Meclizine 25 Mg Tab PO 25 mg TID ROSALIE Administration Methotrexate 15 mg 06/22/23 09:00 Methotrexate Sodium 2.5 Mg Tab PO MO ROSALIE Nitroglycerin 0.4 mg 06/21/23 10:17 Nitroglycerin Sl Tabs 0.4 Mg Tab SUBLINGUAL Q5M PRN Chest Pain Nitroglycerin 1 inch 06/21/23 12:00 06/22/23 05:54 Nitroglycerin Oint 1 Inch/Gm Packet TOPICAL Not Given Q6HR ROSALIE Non-Formulary Medication 25 mg 06/21/23 13:28 Doxylamine Succinate [Unisom] PO HS PRN Insomnia Non-Formulary Medication 30 mg 06/22/23 09:00 Lansoprazole [Lansoprazole] PO DAILY [facility] Prednisone 5 mg 06/22/23 09:00 Prednisone 5 Mg Tab PO DAILY [facility] Intake and Output 06/21/23 06/22/23 06/22/23 22:59 06:59 14:59 Intake Total 10 Balance 10 Intake: IV 10 Invasive Line 1 10 Oral 0 Other: Voiding Method Toilet Toilet # Voids 1 06/21/23 08:29 06/21/23 08:29
--- NOTE | 2023-06-22 12:56 | CT ---
CTA CHEST EXAMINATION TYPE: CT chest angio for PE DATE OF EXAM: 06/22/2023 INDICATION: Dyspnea CT DLP: 232 mGycm, Automated exposure control for dose reduction was used. CONTRAST: Patient injected with 100 ml mL of Isovue 370. COMPARISON: None TECHNIQUE: CT of the chest is performed on a spiral scan at 2 mm thick sections. Study is performed with intravenous contrast timed for evaluation for pulmonary embolism. This will limit additional po rtions of the evaluation. 3-D MIP images reconstructed by the technologist are reviewed on the compu ter in the coronal and sagittal planes. FINDINGS: No persistent filling defects are evident to suggest an acute pulmonary embolism. No mediastinal or hilar adenopathy enlarged by CT criteria is evident. The ascending aorta diameter at the level of the main pulmonary artery is 3.3 cm. The main pulmonary artery diameter at the bifurcation is 2.3 cm. Very minimal pericardial effusion may be present. The re is some reflux into the distal inferior vena cava. Lung windows are clear. Moderate size hiatal hernia is present. Limited CT sections were through the upper abdomen. Gallstones are present. IMPRESSION: 1. No acute pulmonary embolism. 2. No acute pulmonary process. 3. Cholelithiasis. 4. Moderate size hiatal hernia
--- NOTE | 2023-06-22 14:19 | P.CNNES ---
History of Present Illness Consult date: 06/22/23 Requesting physician: Tom Dickinson Reason for Consult: abnormal ct, vertigo History of Present Illness: this is a 67-year-old woman who presented emergency department because of dizziness chest pain and the uncontrolled hypertension. She stated that the dizziness started about a weeks ago. she feels dizziness is worse with standing up and moving around. She denies any diplopia, focal weakness, and any falls. She does have some ringing in the right ear that's chronic and she does not follow up with ENT. She denies any fevers. Denies any new hearing loss. Denies any numbness difficulty swallowing or getting her words out. She feels her dizziness is getting worse. She is also feeling chest pain as well as her blood pressure was uncontrolled diabetes. She denies any history of stroke in the past. She is an ex-smoker. She was taking aspirin 81 mg daily at home. Some of the workup during his hospital visit consisted of: CT of the head is reported as no acute intracranial CT abnormality. Mild atrophy and mild chronic microvascular ischemic white matter changes. Lacunar infarct suggested in the bilateral basal ganglia, favored to be chronic. There is persistent concern for acute process, MRI may be considered.I personally reviewed the CT and I feel there is no acute or subacute ischemia. Patient does have small lacunar over the right posterior internal capsule in my opinion and I did not appreciate the on the left lipid panel is a triglyceride 151, cholesterol is 198, LDLs 117 and HDL is 50. 2-D echo was reported as normal left ventricular size and systolic function. No significant abnormality in the Doppler exam. Review of Systems Review of system: The 12 point system was reviewed and apparent positive and negative per HPI. Past Medical History Past Medical History: COPD, Hyperlipidemia, Hypertension, Rheumatoid Arthritis (RA), Thyroid Disorder Additional Past Medical History / Comment(s): barrets esophagus, mctd connective tissue disorder. History of Any Multi-Drug Resistant Organisms: None Reported Past Surgical History: Appendectomy, Section Additional Past Surgical History / Comment(s): "surgery on ruptured cyst on ovary" Smoking Status: Former smoker Medications and Allergies Home Medications Medication Instructions Recorded Confirmed Type Acetaminophen Tab [Tylenol] 650 mg PO Q6H PRN 06/21/23 06/21/23 History Albuterol Sulfate [Albuterol 2 puff INHALATION RT-QID PRN 06/21/23 06/21/23 History Sulfate Hfa] Aspirin EC [Ecotrin Low Dose] 81 mg PO BID 06/21/23 06/21/23 History Doxylamine Succinate [Unisom] 25 mg PO HS PRN 06/21/23 06/21/23 History Ezetimibe [Zetia] 10 mg PO HS 06/21/23 06/21/23 History Fluticasone/Umeclidin/Vilanter 1 puff INHALATION RT-DAILY 06/21/23 06/21/23 History [Trelegy Ellipta 100-62.5-25] Folic Acid 1 mg PO DAILY 06/21/23 06/21/23 History Lansoprazole 30 mg PO DAILY 06/21/23 06/21/23 History Levothyroxine Sodium [Synthroid] 88 mcg PO DAILY 06/21/23 06/21/23 History Losartan Potassium 100 mg PO HS 06/21/23 06/21/23 History carvediloL [Coreg] 25 mg PO BID 06/21/23 06/21/23 History metHOTREXate sodium 15 mg PO MO 06/21/23 06/21/23 History predniSONE 5 mg PO DAILY 06/21/23 06/21/23 History Allergies Allergy/AdvReac Type Severity Reaction Status Date / Time dexlansoprazole Allergy Unknown Verified 06/21/23 11:26 [From Dexilant] duloxetine [From Cymbalta] Allergy Unknown Verified 06/21/23 11:26 etanercept [From Enbrel] Allergy Unknown Verified 06/21/23 11:26 hydroxychloroquine Allergy Nausea & Verified 06/21/23 11:26 [From Plaquenil] Vomiting & Diarrhea NSAIDS (Non-Steroidal Allergy Unknown Verified 06/21/23 11:26 Anti-Inflamma pantoprazole [From Protonix] Allergy Unknown Verified 06/21/23 11:26 Penicillins Allergy Rash/Hives Verified 06/21/23 11:26 rosuvastatin [From Crestor] Allergy Unknown Verified 06/21/23 11:26 salicylates Allergy Unknown Verified 06/21/23 11:26 ant Allergy Unknown Uncoded 06/21/23 11:26 Physical Examination - Vital Signs Vital Signs: Vital Signs Temp Pulse Pulse Resp BP BP Pulse Ox 06/22/23 11:37 66 17 131/78 95 06/22/23 11:31 68 06/22/23 11:18 64 06/22/23 09:12 67 15 175/83 97 06/22/23 08:20 68 06/22/23 08:04 68 06/22/23 04:00 69 16 127/85 96 06/22/23 00:00 97.9 F 69 16 139/79 96 06/21/23 20:00 98.1 F 74 16 138/86 97 06/21/23 16:37 98.1 F 64 16 160/79 96 06/21/23 14:40 98.1 F 76 18 154/93 97 06/21/23 14:30 74 16 144/94 97 Intake and Output 06/21/23 06/22/23 06/22/23 22:59 06:59 14:59 Intake Total 10 Balance 10 Intake: IV 10 Invasive Line 1 10 Oral 0 Other: Voiding Method Toilet Toilet Toilet # Voids 1 1 # Bowel Movements 1 GENERAL: The patient is lying in bed and is not in acute distress. NEUROLOGICAL: Higher mental function: The patient is awake, alert, oriented to self, place and time. Patient is following commands. No aphasia and no neglect. Cranial nerves: The pupils are round, equal and reactive to light and accommodation. Visual barrera are full to confrontation throughout. Extraocular movement is intact no nystagmus is noted. Facial sensation is normal to touch throughout. The facial strength is normal throughout. Hearing is normal bilaterally to hand rub. Tongue is midline and moved [id number] without any difficulty. No dysarthria is noted. Shoulder shrug is normal bilaterally. Motor: Gait is subtle slow making turns but otherwise normal. The strength is 5 over 5 throughout. Normal tone and bulk. Cerebellum: Normal finger to nose heel to johnson bilaterally. Sensation: Sensation is normal to touch throughout. Reflexes (right/left): 2+ throughout. Plantars are downgoing bilaterally. Results - Laboratory Findings CBC and BMP: 06/21/23 08:29 06/22/23 07:55 Abnormal Lab Findings: Abnormal Labs 06/21/23 06/21/23 06/21/23 08:29 08:29 15:06 WBC 14.3 H Neutrophils # 12.1 H D-Dimer 0.67 H Sodium 135 L Carbon Dioxide 19 L Creatinine 0.43 L Glucose 103 H Triglycerides 06/22/23 06/22/23 07:55 07:55 WBC Neutrophils # D-Dimer Sodium Carbon Dioxide Creatinine Glucose 107 H Triglycerides 151.00 H Assessment and Plan Assessment: this is a 67-year-old woman who presented emergency department because of the dizziness for the last 1 week and it's mostly with position. She denies any focal weakness numbness or diplopia. She has recent uncontrolled hypertension and feels she is having chest pain. Acute dizziness seems more peripheral vertigo. Old lacunar over the basal ganglia that is old and it's reported bilateral but my pain I felt was more right and it likely due to chronic small vessel disease because of her risk factors one of them is hypertension and age. Hypertensive urgency Chest pain Chronic tinnitus over the right ear Underlying history of hypertension Plan: I ordered MRI of the brain with and without because of her vertigo to rule out any acute or subacute stroke or any enhancement which I feel is unlikely patient is on meclizine at 25 mg 1 tablet 3 times a day and I'll change it to 4 times a day recommended for her to be for 1 week and after that when necessary Patient received Valium 2 mg once. patient was on home dose of aspirin 81 mgand that she was notified by the cardiology team to avoid the aspirin. 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 We'll defer the rest the medical management to the primary and other specialists The plan was discussed with the patient, her was at bedside and the primary team. Thank you for the consultation. Time with Patient: Greater than 30
[2023-06-22] MEDS: LORazepam 2 MG/ML INJ IV STA (18:04)
[2023-06-22] MEDS: MECLIZINE 25 MG TAB PO SCH (18:04)
--- NOTE | 2023-06-22 19:56 | MR ---
EXAMINATION TYPE: MR brain wo/w con DATE OF EXAM: 06/22/2023 History: Persistent vertigo. COMPARISON: None. TECHNIQUE: Multiecho multiplanar images of brain were obtained with and without contrast FINDINGS: On the T1-weighted sagittal images, the midline structures including the craniovertebral junction re lationships appear normal. The ventricles, basal cisterns and sulci over the convexities are within normal limits and there is n o mass effect or shift of midline structures There is mild multifocal abnormal increased signal intensity within the periventricular white matter most likely reflecting mild chronic ischemic white matter demyelination. Based on diffusion-weighted imaging, there is no diffusion restriction or acute ischemic event. Following contrast administration, there is no pathological enhancement. The posterior fossa including the brainstem, fourth ventricle and cerebellar pontine angles appear no rmal. Intraorbital contents are normal and symmetric. Visualized paranasal sinuses are well aerated. There is moderate fluid in right mastoid air cells. The left mastoid air cells are well aerated. IMPRESSION: 1. No mass or mass effect or pathological enhancement. 2. No acute ischemic event. 3. Mild multifocal chronic ischemic white matter evaluation. 4. Moderate fluid in the right mastoid air cells.
[2023-06-23 08:10] LABS: Basophils # (A) 0.1 k/uL (0-0.2); Basophils % (A) 1 %; Eosinophils # (A) 0.2 k/uL (0-0.7); Eosinophils % (A) 2 %; HCT 43.7 % (34.0-46.0); HGB 13.7 gm/dL (11.4-16.0); Lymphocytes # (A) 2.1 k/uL (1.0-4.8); Lymphocytes % (A) 22 %; MCH 30.4 pg (25.0-35.0); MCHC 31.3 g/dL (31.0-37.0); MCV 97.1 fL (80.0-100.0); Mean Platelet Volume 7.1; Monocytes # (A) 0.5 k/uL (0-1.0); Monocytes % (A) 5 %; Neutrophils # (A) 6.5 k/uL (1.3-7.7); Neutrophils % (A) 69 %; Platelet Count 260 k/uL (150-450); RDW 15.3 % (11.5-15.5); WBC 9.5 k/uL (3.8-10.6)
[2023-06-23 09:56] LABS: ALT 12 U/L (4-34); AST 20 U/L (14-36); African American GFR (CKD) >90 (>60 ml/min/1.73 sqM); Alkaline Phosphatase 77 U/L (38-126); Anion Gap 7 mmol/L; Blood Urea Nitrogen 11 mg/dL (7-17); Calcium 9.3 mg/dL (8.4-10.2); Carbon Dioxide 24 mmol/L (22-30); Chloride 107 mmol/L (98-107); Glucose 118 mg/dL (74-99); Non-African American GFR(CKD) >90 (>60 ml/min/1.73 sqM); Potassium 3.6 mmol/L (3.5-5.1); Sodium 138 mmol/L (137-145); Total Bilirubin 0.7 mg/dL (0.2-1.3); Total Protein 6.8 g/dL (6.3-8.2)
[2023-06-23] MEDS: VALSARTAN 160 MG TAB PO SCH (11:17)
--- NOTE | 2023-06-23 14:00 | P.PN ---
Subjective Progress Note Date: 06/23/23 Consult reason: chest pain History of present illness: History of present illness: This is a 67-year-old female with past medical history of hypertension, vertigo, hyperlipidemia, hypothyroidism, rheumatoid arthritis, Cobian's esophagus, connective tissue disorder. Patient states that she came in because of vertigo. She has had it in the past but never this bad. She states she has been taking all of her medications as directed and has been on steroids for a long time. Her initial blood pressure was 164/102-208/99. Patient states that her blood pressure normally runs normal at home. She feels like the vertigo started first and then she checked her blood pressure and it was high. Discussed the option that it was relieved but her blood pressure was high and the symptom that it caused was vertigo. EKG sinus rhythm with no acute ST changes. Chest x-ray: No 30: 18 there today acute process CAT scan of the brain: No acute process, chronic changes WBC 14.3, hemoglobin 13.8. INR 0.9. D-dimer 0.67. Electrolytes and renal function are normal. Troponins negative x 3. Triglycerides 151, cholesterol 198, LDL 117, HDL 50. Home cardiac medications: Aspirin 81 mg daily, Coreg 25 mg twice daily, Zetia 10 mg at bedtime, levothyroxine 88 mg daily, losartan 100 mg at bedtime, patient is also on methotrexate and prednisone. 06/22 Patient is seen today in follow-up. Because her blood pressure was 112/77 this morning, the patient's nurse held losartan. Overall blood pressures have significantly improved from yesterday. Yesterday, losartan was transition to valsartan 320 mg daily. Heart rate is in the 60s, pulse ox 98% on room air. C BC within normal limits. Creatinine 0.51. Potassium 3.6. Echocardiogram reveals EF of 60 to 65%. No significant abnormality on Doppler exam. No pericardial effusion. Physical examination: Gen: This is a 67-year-old female in no acute distress VS: reviewed blood pressure 175/83, heart rate 67, pulse ox 97% on room air. HEENT: Head is atraumatic, normocephalic. Pupils equal, round. Sclerae is anicteric. NECK: Supple. No JVD. No subclavian bruit. LUNGS: Clear to auscultation. No wheezes or rhonchi. No intercostal retractions. HEART: Regular rate and rhythm. No murmur. ABDOMEN: Soft No tenderness. No abdominal bruit. EXTREMITIES: No pedal edema. No calf tenderness. NEUROLOGICAL: Patient is awake, alert and oriented x3. Assessment: Hypertensive urgency Vertigo Hyperlipidemia Hypothyroidism Rheumatoid arthritis Plan: Continue patient's home cardiac medications Continue valsartan and change dosing to 160 mg twice daily Monitor blood pressure closely Further recommendations to follow based upon clinical course Nurse practitioner note has been reviewed, I agree with documented findings and plan of care. Patient was seen and examined. Objective - Vital Signs Vital signs: Vital Signs Temp 98.3 F 06/23/23 07:52 Pulse 65 06/23/23 09:05 Resp 15 06/23/23 07:52 BP 112/77 06/23/23 07:52 Pulse Ox 95 06/23/23 07:52 FiO2 Intake & Output 06/22/23 06/23/23 06/23/23 18:59 06:59 18:59 Intake Total 100 180 Balance 100 180 Intake: Oral 100 180 Other: Voiding Method Toilet Toilet Toilet # Voids 3 1 # Bowel Movements 1 - Labs CBC & Chem 7: 06/23/23 07:41 06/23/23 07:41 Labs: Abnormal Lab Results - Last 24 Hours (Table) 06/22/23 06/23/23 Range/Units 07:55 07:41 Creatinine 0.51 L (0.52-1.04) mg/dL Glucose 118 H (74-99) mg/dL Triglycerides 151.00 H (0.00-149.00) mg/dL
--- NOTE | 2023-06-23 14:28 | P.PN ---
Subjective Progress Note Date: 06/23/23 I am following-up with patient and feel dizziness is somewhat improving compared to yesterday. She is able to use the walker and walk on her own. Otherwise no new neurological issues. Objective - Vital Signs Vital signs: Vital Signs Temp 98.3 F 06/23/23 07:52 Pulse 67 06/23/23 11:15 Resp 17 06/23/23 11:15 BP 111/77 06/23/23 11:15 Pulse Ox 98 06/23/23 11:15 FiO2 Intake & Output 06/22/23 06/23/23 06/23/23 18:59 06:59 18:59 Intake Total 100 360 Balance 100 360 Intake: Oral 100 360 Other: Voiding Method Toilet Toilet Toilet # Voids 3 1 # Bowel Movements 1 - Exam GENERAL: The patient is lying in bed and is not in acute distress. NEUROLOGICAL: Higher mental function: The patient is awake, alert, oriented to self, place and time. Patient is following commands. No aphasia and no neglect. Cranial nerves: The pupils are round, equal and reactive to light and accommodation. Visual barrera are full to confrontation throughout. Extraocular movement is intact no nystagmus is noted. Facial sensation is normal to touch throughout. The facial strength is normal throughout. Hearing is normal bilaterally to hand rub. Tongue is midline and moved [id number] without any difficulty. No dysarthria is noted. Shoulder shrug is normal bilaterally. Motor: Gait is using walker without any issues. The strength is 5 over 5 throughout. Normal tone and bulk. Cerebellum: Normal finger to nose heel to johnson bilaterally. Sensation: Sensation is normal to touch throughout. Reflexes (right/left): 2+ throughout. Plantars are downgoing bilaterally. Some of the workup during his hospital visit consisted of: CT of the head is reported as no acute intracranial CT abnormality. Mild atrophy and mild chronic microvascular ischemic white matter changes. Lacunar infarct suggested in the bilateral basal ganglia, favored to be chronic. There is persistent concern for acute process, MRI may be considered.I personally reviewed the CT and I feel there is no acute or subacute ischemia. Patient does have small lacunar over the right posterior internal capsule in my opinion and I did not appreciate the on the left lipid panel is a triglyceride 151, cholesterol is 198, LDLs 117 and HDL is 50. 2-D echo was reported as normal left ventricular size and systolic function. No significant abnormality in the Doppler exam. MRI Brain is negative for mass or mass effect or enhancement. No acute ischemic stroke. Moderate fluide in the right mastoid air cells. - Labs CBC & Chem 7: 06/23/23 07:41 06/23/23 07:41 Labs: Abnormal Lab Results - Last 24 Hours (Table) 06/23/23 Range/Units 07:41 Creatinine 0.51 L (0.52-1.04) mg/dL Glucose 118 H (74-99) mg/dL Assessment and Plan Assessment: this is a 67-year-old woman who presented emergency department because of the dizziness for the last 1 week and it's mostly with position. She denies any focal weakness numbness or diplopia. She has recent uncontrolled hypertension and feels she is having chest pain. Acute dizziness seems more peripheral vertigo--No acute ischemia or enhancement. Has mastoid fluid on right---slight improvement Old lacunar over the basal ganglia that is old and it's reported bilateral but my pain I felt was more right and it likely due to chronic small vessel disease because of her risk factors one of them is hypertension and age. Hypertensive urgency Chest pain Chronic tinnitus over the right ear Underlying history of hypertension Plan: patient is on meclizine at 25 mg 1 tablet 3 times a day and I'll change it to 4 times a day recommended for her to be for 1 week and after that when necessary Patient received Valium 2 mg once. patient was on home dose of aspirin 81 mgand that she was notified by the cardiology team to avoid the aspirin. If human resources hr generalist does not feel aspirin is the right medication then I would recommend Plavix for secondary stroke prophylaxis patient with history of lacunar stroke Cardiology is on board patient follows up with ENT as an outpatient for her tinnitus over the right ear and I recommend the patient to continue to follow up with ENT as an outpatient. We'll defer the rest the medical management to the primary and other specialists The plan was discussed with the patient, her who is at bedside. I discussed case with primary team N.P. I attempted to reach cardiology team N.P. but no response. Otherwise no additional neurological work-up. Will sign off. Please reconsult if needed. Time with Patient: Less than 30
[2023-06-23 20:34] VITALS: RESP 18
--- NOTE | 2023-06-23 21:25 | P.PN ---
Subjective patient is 67-year-old lady with past medical history significant for hypertension, hypothyroidism, vertigo, COPD, hyperlipidemia who presented to the ER because of worsening dizziness and chest pain. Patient has history of vertigo and normally follows up with the ENT, states that the vertigo was worsening over the last few days to the extent that it was present throughout the day, brought on by sharp movements of the head. Patient was unsteady on her gait. Patient also may have nausea and vomiting. Yesterday patient started noticing chest pressure on the right side, intermittent, nonradiating, no aggravating or relieving factor associated chest pain. There was no complaint of shortness of breath. No complaint of orthopnea and PND. No pain or swelling of feet. Because of this dizziness and chest pain, patient came to the ER Initial lab work done in the ER showed WBC 14.3, hemoglobin 13.8, platelet count 271, sodium 135, potassium 4.5, BUN 9, creatinine 0.43 glucose 103, troponin 0.012 EKG done in the ER showed heart rate of 51, no ST segment elevation or depression seen, no T-wave inversions seen. Chest x-ray done in the ER no evidence for acute pulmonary disease Patient admitted to internal medicine service 06/21. Patient seen and examined. D-dimer was elevated, will order CT angio chest to rule out PE. No further episodes of chest pain. Still has dizziness but states it has improved compared to yesterday.Results of CT head noted, showing mild atrophy and mild chronic microvascular ischemic changes. Lacunar infarct suggested in the bilateral basal ganglia, favored to be chronic 06/23/2023 Patient awake alert She denies headache or any specific symptoms she is still complaining from nonspecific dizziness, she does not describe it today as vertigo Or presyncope but nonspecific Patient blood pressure controlled and cardiology on the case Neurology recommend to start antiplatelet therapy, we will going to discuss with cardiology team tomorrow Possible discharge in 24 to 48 hours Objective - Vital Signs Vital signs: Vital Signs Temp 98.3 F 06/23/23 07:52 Pulse 65 06/23/23 09:05 Resp 15 06/23/23 07:52 BP 112/77 06/23/23 07:52 Pulse Ox 95 06/23/23 07:52 FiO2 Intake & Output 06/22/23 06/23/23 06/23/23 18:59 06:59 18:59 Intake Total 100 180 Balance 100 180 Intake: Oral 100 180 Other: Voiding Method Toilet Toilet # Voids 3 1 # Bowel Movements 1 - Exam GENERAL: The patient is alert and oriented x3, not in any acute distress. Well developed, well nourished. HEENT: Pupils are round and equally reacting to light. EOMI. No scleral icterus. No conjunctival pallor. Normocephalic, atraumatic. No pharyngeal erythema. No thyromegaly. CARDIOVASCULAR: S1 and S2 present. No murmurs, rubs, or gallops. PULMONARY: Chest is clear to auscultation, no wheezing , no crackles. ABDOMEN: Soft, nontender, nondistended, normoactive bowel sounds. No palpable organomegaly. MUSCULOSKELETAL: No joint swelling or deformity. EXTREMITIES: No cyanosis, clubbing, or pedal edema. NEUROLOGICAL: Gross neurological examination did not reveal any focal deficits. SKIN: No rashes. no petechiae. - Labs CBC & Chem 7: 06/23/23 07:41 06/23/23 07:41 Labs: Abnormal Lab Results - Last 24 Hours (Table) 06/22/23 06/22/23 Range/Units 07:55 07:55 Glucose 107 H (74-99) mg/dL Triglycerides 151.00 H (0.00-149.00) mg/dL Assessment and Plan Assessment: Assessment and plan Dizziness, it was described either as vertigo or nonspecific, MRI of the brain is negative continue symptomatic treatment Chest pain, most likely musculoskeletal Dizziness Hypertension Hypothyroidism COPD Hyperlipidemia Plan: Continue with statin Continue with meclizine as needed Continue with losartan and Coreg with close monitoring of blood pressure Will discuss with cardiology team about starting antiplatelet therapy tomorrow Neurology also on the case Continue DVT and GI prophylaxis Possible discharge in the morning
[2023-06-24] MEDS: ASPIRIN 81 MG PO STA (08:55)
[2023-06-24 10:12] VITALS: BP 153/88; PULSE 67; TEMP 98.3
--- NOTE | 2023-06-24 21:53 | P.DS ---
Providers Date of admission: 06/21/23 09:30 Attending physician: Tom Dickinson MD Consults: 06/21/23 10:18 Consult Physician Urgent Consulting Provider: [facility] Consult Reason/Comments: Chest pain Do you want consulting provider notified?: Yes 06/21/23 16:42 Consult Physician Routine Consulting Provider: Mahi Lutz Consult Reason/Comments: ABNORMAL CT, VERTIGO Do you want consulting provider notified?: Yes Primary care physician: Héctor Bingham Hospital Course: Assessment and plan Dizziness, it was described either as vertigo or nonspecific, MRI of the brain is negative continue symptomatic treatment patient was cleared by both cardiology and neurology Chest pain, most likely musculoskeletal.. By paid search marketing analyst Chronic right ear problem she follow-up with the ENT service as an outpatient Dizziness Hypertension Hypothyroidism COPD Hyperlipidemia Hospital course: patient is 67-year-old lady with past medical history significant for hypertension, hypothyroidism, vertigo, COPD, hyperlipidemia who presented to the ER because of worsening dizziness and chest pain. Patient has history of vertigo and normally follows up with the ENT, states that the vertigo was worsening over the last few days to the extent that it was present throughout the day, brought on by sharp movements of the head. Patient was unsteady on her gait. Patient evaluated by paid search marketing analyst and the neurologist, echocardiogram showed ejection fraction of 60 to 65% MRI of the brain was negative for acute or subacute infarct. Patient was treated symptomatically with meclizine per neurologist recommendation. Patient was cleared for discharge by both cardiology and neurology service Neurologist recommended the patient to be on aspirin or Plavix. I talked to Tamera today from cardiology team, she told me that they advised the patient to avoid aspirin on admission because her blood pressure was high and to decrease the risk of bleeding but since her blood pressure is controlled there is no cont raindication from their perspective to resume her aspirin Patient states she was taking aspirin 81 mg twice daily for years and that she has aspirin at home and she does not need prescription. Patient was cleared for discharge by both cardiology and neurology Patient reports improvement and she is fully awake and oriented and she wants to go home today. Problems and management plan were discussed with the patient and he verbalized understanding and acceptance Patient was found stable and can be discharged home in guarded prognosis however he needs follow-up as an outpatient. Patient was instructed to follow up with PCP Dr. Bingham within one week and patient agrees Patient was instructed to follow-up with paid search marketing analyst Dr. Odonnell in 1 week and by neurologist Dr. Brennan aden in 2 weeks and patient agrees to call and make appointment Also patient states she has ENT specialist from outside facility that she follows up, contact information for ENT Dr. Perez were provided for her as Plan B with recommendation to follow-up in 1 to 2 weeks and she agrees Physical exam Gen: patient is a AAOx3, no distress CVS: S1-S2, RRR, no murmur Lungs: B/L CTA, no wheezing Abdomen: soft, no distention, no tenderness, positive bowel sounds Extremity: no leg edema or induration Time spent more than 35 minutes Plan - Discharge Summary New Discharge Prescriptions: New Meclizine [Antivert] 25 mg PO QID #60 tab Valsartan [Diovan] 160 mg PO BID #60 tab Continue Acetaminophen Tab [Tylenol] 650 mg PO Q6H PRN PRN Reason: Pain Folic Acid 1 mg PO DAILY Fluticasone/Umeclidin/Vilanter [Trelegy Ellipta 100-62.5-25] 1 puff INHALATION RT-DAILY Aspirin EC [Ecotrin Low Dose] 81 mg PO BID Albuterol Sulfate [Albuterol Sulfate Hfa] 2 puff INHALATION RT-QID PRN PRN Reason: Shortness Of Breath metHOTREXate sodium 15 mg PO MO Lansoprazole 30 mg PO DAILY predniSONE 5 mg PO DAILY carvediloL [Coreg] 25 mg PO BID Ezetimibe [Zetia] 10 mg PO HS Levothyroxine Sodium [Synthroid] 88 mcg PO DAILY Doxylamine Succinate [Unisom] 25 mg PO HS PRN PRN Reason: Insomnia Discontinued Losartan Potassium 100 mg PO HS Discharge Medication List Acetaminophen Tab [Tylenol] 650 mg PO Q6H PRN 06/21/23 [History] Albuterol Sulfate [Albuterol Sulfate Hfa] 2 puff INHALATION RT-QID PRN 06/21/23 [History] Aspirin EC [Ecotrin Low Dose] 81 mg PO BID 06/21/23 [History] Doxylamine Succinate [Unisom] 25 mg PO HS PRN 06/21/23 [History] Ezetimibe [Zetia] 10 mg PO HS 06/21/23 [History] Fluticasone/Umeclidin/Vilanter [Trelegy Ellipta 100-62.5-25] 1 puff INHALATION RT-DAILY 06/21/23 [History] Folic Acid 1 mg PO DAILY 06/21/23 [History] Lansoprazole 30 mg PO DAILY 06/21/23 [History] Levothyroxine Sodium [Synthroid] 88 mcg PO DAILY 06/21/23 [History] carvediloL [Coreg] 25 mg PO BID 06/21/23 [History] metHOTREXate sodium 15 mg PO MO 06/21/23 [History] predniSONE 5 mg PO DAILY 06/21/23 [History] Meclizine [Antivert] 25 mg PO QID #60 tab 06/24/23 [Rx] Valsartan [Diovan] 160 mg PO BID #60 tab 06/24/23 [Rx] Follow up Appointment(s)/Referral(s): Jose Carlos Sanchez MD [STAFF PHYSICIAN] - 1 Week (or follow up with your cardilogist in one week, you have the contact info as you mentioned to the medical team ) Mitch Perez DO [Doctor of Osteopathic Medicine] - 1 Week (or follow up with your ear doctor ( you have the contact info as you mentioned to the medical team_) ) Gabby Lopez DO [REFERRING] - 1 Week (pt to make her own appointments) Héctor Bingham DO [Primary Care Provider] - 1-2 days (pt to make her own appointments) Whit Amin MD [REFERRING] - 2 Weeks (neurologist pt to make her own appointments) Activity/Diet/Wound Care/Special Instructions: heart healthy diet activity is restricted till you see your doctor Discharge Disposition: HOME WITH HOME HEALTH SERVICES
== END 2023-06-24 10:33 | disposition home health service (06) ==
LOC: EC 07:52 → 3SCARD 09:30
PROVIDERS: ADMIT Internal Medicine; ATTEND Internal Medicine
DX: I16.0 Hypertensive urgency (principal); I10 Essential (primary) hypertension; M06.9 Rheumatoid arthritis, unspecified; E03.9 Hypothyroidism, unspecified; J44.9 Chronic obstructive pulmonary disease, unspecified; E78.5 Hyperlipidemia, unspecified; R26.81 Unsteadiness on feet; Z79.899 Other long term (current) drug therapy; Z79.82 Long term (current) use of aspirin; Z79.890 Hormone replacement therapy; Z79.52 Long term (current) use of systemic steroids; Z88.8 Allergy status to other drugs, medicaments and biological substances; Z88.6 Allergy status to analgesic agent; Z88.0 Allergy status to penicillin
CPT/HCPCS: 96361; 96374; 96375; 99285; 36415; 94640 ×6; 93005; 93306; 97162; 97166; 85379; 80061; 80053 ×3; 83735; 84484; 85025 ×2; 85610; 85730; 71046; 70450; 71275; 70553; G0378 ×4; J2060; J0360; J2765; J3360; J8610; J7512 ×3; Q9967; A9585

== ENCOUNTER → 2023-10-02 | Outpatient (CLI) | payer MEDICARE ==
--- NOTE | 2023-10-02 20:17 | BD ---
EXAMINATION TYPE: Axial Bone Density DATE OF EXAM: 10/02/2023 CLINICAL HISTORY: 67 years old Female. ICD-10 CODE: Z78.0 ASYMPTOMATIC MENOPAUSAL STATE Height: 61 Weight: 128.2 FRAX RISK QUESTIONS: Alcohol (3 or more units per day): no Family History (Parent hip fracture): no Glucocorticoids (More than 3mos): Prednisone past 7 years for RA (Ex: prednisone, prednisolone, methylprednisolone, dexamethasone, and hydrocortisone). History of Fracture in Adulthood: L1, thumb Secondary Osteoporosis: 1. Type 1 Diabetes: no 2. Hyperthyroidism: no 3. Menopause before 45: no 4. Malnutrition: no 5. Chronic liver disease: no Rheumatoid Arthritis: yes since 2011 Current Tobacco Use: no RISK FACTORS HISTORY OF: Hip Fracture (Right/Left): no Spine Fracture: L1 When: 2019 History of Wrist Fracture: no When: Surgery to Spine/Hip(right/left)/Wrist (right/left): L1 2019 MEDICATIONS: Thyroid Medications: Levothyroxine How Long: past 20 years Osteoporosis Medications: no EXAM MEASUREMENTS: Bone mineral density about the R hip (g/cm2): 0.638 Bone mineral density about the L hip (g/cm2): 0.647 T Score values are as follows: -----R Neck: -2.5 -----L Neck: -2.8 -----R Total: -2.9 -----L Total: -2.9 Z Score values are as follows: -----R Neck: -0.7 -----L Neck: -1.0 -----R Total: -1.4 -----L Total: -1.3 Baseline Study FRAX%s: The graph provided illustrates a 47.5% chance for a major osteoporotic fx and a 18.6% chance for the hips probability for fx in 10 years time. IMPRESSION: Osteoporosis (T Score less than -2.5). There is increased fracture risk and therapy is usually indicated based on age. Re-Screen 1-2 years. NOTE: T-SCORE=SD OF THE YOUNG ADULT MEAN.
== END | disposition home or self-care (01) ==
LOC: RADBDWWP 08:48
PROVIDERS: ATTEND Family Medicine
DX: M85.89 Other specified disorders of bone density and structure, multiple sites (principal); Z78.0 Asymptomatic menopausal state
CPT/HCPCS: 77080

== ENCOUNTER → 2023-10-13 | Outpatient (CLI) | payer MEDICARE ==
--- NOTE | 2023-10-13 20:13 | US ---
EXAMINATION TYPE: US abdomen limited DATE OF EXAM: 10/13/2023 COMPARISON: 11/06/22 CLINICAL INDICATION: Female, 67 years old with history of R10.11 RIGHT UPPER QUADRANT PAIN; RUQ pain TECHNIQUE: Multiple sonographic images of the right upper quadrant are obtained. FINDINGS: EXAM MEASUREMENTS: Liver Length: 13.6 cm Gallbladder Wall: 0.15 cm CBD: 0.60 cm Right Kidney: 10.3 x 4.9 x 3.9 cm MULTIPLE PUNCH PRESS OPERATOR NOTES: Pancreas: wnl Liver: Mild coarsening of the liver. Gallbladder: multiple mobile gallstones seen Evidence for sonographic Erwin's sign: No CBD: wnl Right Kidney: wnl IMPRESSION: 1. Cholelithiasis with no CT evidence of cholecystitis. 2. Nonspecific pattern to the liver could be related to mild underlying hepatocellular disease or hep atic steatosis. Correlate clinically.
== END | disposition home or self-care (01) ==
LOC: RADUSWWP 08:44
PROVIDERS: ATTEND Neuromusculoskeletal Medicine & OMM
DX: K80.20 Calculus of gallbladder without cholecystitis without obstruction (principal)
CPT/HCPCS: 76705

== ENCOUNTER → 2023-12-21 | Outpatient (CLI) | payer MEDICARE ==
[2023-12-21 20:46] LABS: Basophils # (A) 0.06 X 10*3/uL (0.00-0.10); Basophils % (A) 0.5 %; Eosinophils # (A) 0.09 X 10*3/uL (0.04-0.35); Eosinophils % (A) 0.8 %; HCT 39.6 % (37.2-46.3); HGB 12.9 g/dL (12.0-15.0); Lymphocytes # (A) 1.48 X 10*3/uL (0.90-5.00); Lymphocytes % (A) 13.3 %; MCH 30.8 pg (27.0-32.0); MCHC 32.6 g/dL (32.0-37.0); MCV 94.5 FL (80.0-97.0); Mean Platelet Volume 9.7 FL (9.5-12.2); Monocytes # (A) 0.55 X 10*3/uL (0.20-1.00); NRBC Per 100 WBC 0 X 10*3/uL (0.00-0.01); Neutrophils # (A) 8.84 X 10*3/uL (1.80-7.70); Neutrophils % (A) 79.8 %; Platelet Count 300 X 10*3/uL (140-440); RBC 4.19 X 10*6/uL (4.10-5.20); RDW 16.7 % (11.5-14.5); WBC 11.09 X 10*3/uL (4.50-10.00)
[2023-12-21 20:51] LABS: Blood Urea Nitrogen 7.2 mg/dL (9.0-27.0); Chloride 101 mmol/L (96-109); Glucose 124 mg/dL (70-110); Potassium 4.6 mmol/L (3.5-5.5); Sodium 139 mmol/L (135-145)
[2023-12-21 20:52] LABS: ALT 9 U/L (8-44); AST 18 U/L (13-35); Albumin 4.5 g/dL (3.8-4.9); Albumin/Globulin Ratio 1.96 Ratio (1.60-3.17); Alkaline Phosphatase 85 U/L (41-126); Calcium 9.2 mg/dL (8.7-10.3); Carbon Dioxide 25.4 mmol/L (21.6-31.8); Globulin 2.3 g/dL (1.6-3.3); Total Bilirubin <0.2 mg/dL (0.3-1.2); Total Protein 6.8 g/dL (6.2-8.2)
== END | disposition home or self-care (01) ==
LOC: LABWHC1 14:29
PROVIDERS: ATTEND Internal Medicine Rheumatology
DX: Z51.81 Encounter for therapeutic drug level monitoring (principal); M35.9 Systemic involvement of connective tissue, unspecified; R94.2 Abnormal results of pulmonary function studies; Z79.899 Other long term (current) drug therapy
CPT/HCPCS: 36415; 80053; 85025

== ENCOUNTER → 2024-04-08 | Outpatient (CLI) | payer MEDICARE ==
[2024-04-08 20:19] LABS: Basophils # (A) 0.06 X 10*3/uL (0.00-0.10); Basophils % (A) 0.5 %; Eosinophils # (A) 0.08 X 10*3/uL (0.04-0.35); Eosinophils % (A) 0.7 %; HCT 42.2 % (37.2-46.3); Lymphocytes # (A) 1.87 X 10*3/uL (0.90-5.00); MCH 29.7 pg (27.0-32.0); MCHC 30.8 g/dL (32.0-37.0); MCV 96.6 FL (80.0-97.0); Mean Platelet Volume 10.2 FL (9.5-12.2); Monocytes # (A) 0.51 X 10*3/uL (0.20-1.00); Monocytes % (A) 4.4 %; NRBC Per 100 WBC 0 X 10*3/uL (0.00-0.01); Neutrophils # (A) 9.09 X 10*3/uL (1.80-7.70); Platelet Count 302 X 10*3/uL (140-440); RBC 4.37 X 10*6/uL (4.10-5.20); RDW 16.6 % (11.5-14.5); WBC 11.66 X 10*3/uL (4.50-10.00)
[2024-04-08 20:50] LABS: ALT 14 U/L (8-44); AST 19 U/L (13-35); Albumin 4.6 g/dL (3.8-4.9); Albumin/Globulin Ratio 1.92 Ratio (1.60-3.17); Alkaline Phosphatase 77 U/L (41-126); Blood Urea Nitrogen 11.7 mg/dL (9.0-27.0); C Reactive Protein <0.30 mg/dL (0.00-0.80); Calcium 9.9 mg/dL (8.7-10.3); Chloride 100 mmol/L (96-109); Globulin 2.4 g/dL (1.6-3.3); Glucose 126 mg/dL (70-110); Potassium 4.6 mmol/L (3.5-5.5); Sodium 138 mmol/L (135-145); Total Bilirubin 0.2 mg/dL (0.3-1.2)
[2024-04-08 20:52] LABS: Erythrocyte Sedimentation Rate 18 mm/Hr (0-30)
== END | disposition home or self-care (01) ==
LOC: LABWHC1 13:18
PROVIDERS: ATTEND Internal Medicine Rheumatology
DX: Z51.81 Encounter for therapeutic drug level monitoring (principal); M06.9 Rheumatoid arthritis, unspecified; M35.1 Other overlap syndromes
CPT/HCPCS: 36415; 80053; 85025; 85652; 86140